=== PATIENT | female | born 1950 | race Caucasian/White ===

== ENCOUNTER 2018-09-28 10:26 | Emergency (ER) | payer MEDICARE ==
[2018-09-28 10:54] VITALS: O2SAT 98
--- NOTE | 2018-09-28 11:16 | ERPHSYRPT ---
- History of Present Illness Time Seen by Provider: 09/28/18 11:06 Source: patient Exam Limitations: no limitations Patient Subjective Stated Complaint: states walked outside and slipped on ice. fell backwards and hit back of head and right hip on the ice. takes baby asa at night. now having headache and right hip pain. Triage Nursing Assessment: ambulated to room per self. skin w/d, color normal, resp easy. holding head at times. gerson. a/o times three. Physician History: The patient is a 68-year-old female with her fianc complaining that she slipped on ice, causing her to fall back and strike her head on the ice. This happened this morning. She did not lose consciousness. She has a headache on the back side of her head as well as neck pain. She denies nausea or vomiting. She denies numbness or tingling. She wants it checked out because her mother from a head injury in 2005. Her past medical history is significant for anxiety, thyroid cancer, thyroidectomy, HTN, DM, high cholesterol, and hypothyroidism. Occurred: this morning Reason for Fall: slipped, fell from standing pos Injuries/Pain Location: head, neck Loss of Consciousness: no loss of consciousness Quality: aching Severity of Pain-Max: mild Severity of Pain-Current: mild Modifying Factors: Improves With: nothing Associated Symptoms (Fall): headache, neck pain Allergies/Adverse Reactions: cephalexin [From Keflex] Allergy (Verified 09/28/18 10:55) ciprofloxacin [From Cipro] Allergy (Verified 09/28/18 10:55) codeine Allergy (Verified 09/28/18 10:55) erythromycin base Allergy (Verified 09/28/18 10:55) insulin degludec [From Tresiba FlexTouch U-100] Allergy (Verified 09/28/18 10:55 ) Sulfa (Sulfonamide Antibiotics) Allergy (Verified 09/28/18 10:55) Home Medications: ALPRAZolam [Alprazolam] 0.25 mg PO TID 09/28/18 [History] Aspirin [[place] Aspirin EC] 81 mg PO HS 09/28/18 [History] Cetirizine HCl [Zyrtec] 10 mg PO DAILY 09/28/18 [History] Ergocalciferol (Vitamin D2) [Vitamin D2] 50,000 unit PO Q7D 09/28/18 [History] Ezetimibe/Simvastatin [Vytorin 10-40 mg Tablet] 1 tablet PO HS 09/28/18 [History ] Fenofibrate,Micronized 145 mg* [Tricor 145 MG] 145 mg PO DAILY 09/28/18 [ History] Glimepiride 4 mg [Amaryl 4 mg] 6 mg PO DAILY 09/28/18 [History] Levothyroxine Sodium 150 Mcg [Synthroid 150 Mcg] 150 mcg PO DAILY 09/28/18 [History] Losartan/Hydrochlorothiazide [Losartan-Hctz 50-12.5 mg Tab] 1 each PO BID [History] Omeprazole 20 mg PO DAILY 09/28/18 [History] Hx Tetanus, Diphtheria Vaccination/Date Given: No Hx Influenza Vaccination/Date Given: Yes Hx Pneumococcal Vaccination/Date Given: Yes - Review of Systems Constitutional: No Fever, No Chills Eyes: No Symptoms Ears, Nose, & Throat: No Symptoms Respiratory: No Cough, No Dyspnea Cardiac: No Chest Pain, No Edema, No Syncope Abdominal/Gastrointestinal: No Abdominal Pain, No Nausea, No Vomiting, No Diarrhea Genitourinary Symptoms: No Dysuria Musculoskeletal: Neck Pain, Fall Skin: No Rash Neurological: Headache Psychological: No Symptoms Endocrine: No Symptoms Hematologic/Lymphatic: No Symptoms Immunological/Allergic: No Symptoms All Other Systems: Reviewed and Negative - Past Medical History Pertinent Past Medical History: Yes Cardiac History: High Cholesterol, Hypertension, Other Respiratory History: Bronchitis, COPD Endocrine Medical History: Diabetes Type II, Hypothyroidism, Thyroid Cancer Musculoskeletal History: Arthritis GI Medical History: Diverticulitis, Hernia Psycho-Social History: Anxiety, Panic Disorder Other Medical History: MVP - Past Surgical History Past Surgical History: Yes Gastrointestinal: Appendectomy, Cholecystectomy Female Surgical History: Hysterectomy, Tubal Ligation Other Surgical History: thyroidectomy - Social History Smoking Status: Current every day smoker How long have you smoked: many yrs Exposure to second hand smoke: Yes Drug Use: none Patient Lives Alone: Yes - Female History Hx Now: No - Nursing Vital Signs Nursing Vital Signs: Initial Vital Signs Temperature 97.9 F 09/28/18 10:35 Pulse Rate 86 09/28/18 10:35 Respiratory Rate 16 09/28/18 10:35 Blood Pressure 166/88 09/28/18 10:35 O2 Sat by Pulse Oximetry 98 09/28/18 10:35 Pain Scale Pain Intensity 8 - Hussain Coma Score Best Eye Response (Hussain): (4) open spontaneously Best Verbal Response ([place]): (5) oriented Best Motor Response (Hussain): (6) obeys commands Hussain Total: 15 - Physical Exam General Appearance: no apparent distress, alert Head Injury: tenderness (occiput) Eye Exam: PERRL/EOMI ENT Exam: airway nml Neck Exam: mid-line tenderness Respiratory/Chest Exam: normal breath sounds, No chest tenderness, No respiratory distress Cardiovascular Exam: normal heart sounds, regular rate/rhythm Gastrointestinal Exam: soft, No tenderness, No distention, No guarding, No ecchymosis Rectal Exam: not done Back Exam: normal inspection, No vertebral tenderness Extremity Exam: normal inspection, normal range of motion, pelvis stable, No deformities Neurologic Exam: alert, oriented x 3, cooperative, sensation nml, No motor deficits Skin Exam: normal color, warm, dry SpO2 Interpretation: normal SpO2: 98 O2 Delivery: Room Air - CT Exams Head CT Interpretation: Negative, Tele-radiologist Report (per Dr Ortiz), No/ Intracranial Hemorrhag Cervical Spine CT Interpretation: Negative, Tele-radiologist Report (per Dr Ortiz), No Fracture , Other (DJD) Ordered Tests: Active Orders 24 hr Category Date Time Status CERVICAL SPINE WO CONTRAST [CT] Stat Exams 09/28/18 11:20 Taken HEAD WITHOUT CONTRAST [CT] Stat Exams 09/28/18 11:20 Taken - Progress Progress: unchanged Counseled pt/family regarding: rad results - Departure Time of Disposition: 12:36 Departure Disposition: Home Clinical Impression: Fall, Head contusion, Neck pain Condition: Stable Critical Care Time: No Referrals: JAISON QUINTEROS MD [Primary Care Provider] - Additional Instructions: You had a fall today the cause that contusion to the back of your head and some mild neck pain. The head CT and the CT of your neck were both negative. There was no bleeding in your brain. Take Tylenol 500-1000 mg every 6-8 hours as needed. Follow-up with your primary medical doctor as needed.
[2018-09-28 12:14] VITALS: BP 115/94; PULSE 75
--- NOTE | 2018-09-28 20:32 | XRAY ---
Indication: Pain following fall. Multiple contiguous axial images obtained through the head without contrast. Comparison: None Age-appropriate global atrophy and mild periventricular degenerative microvascular ischemia. No acute intracranial hemorrhage, abnormal extra-axial fluid collection, or mass effect. Fourth ventricle is midline without hydrocephalus. Bony calvarium intact. Visualized paranasal sinuses and mastoid air cells are clear. Impression: Nonacute senile brain. Comment: Preliminary interpretation was made by [facility]. No critical discrepancy. CTDI 49.11
--- NOTE | 2018-09-28 20:37 | XRAY ---
Indication: Pain following fall. Multiple contiguous axial images obtained through the cervical spine. Sagittal and coronal reformatted images obtained. Comparison: None Axial images negative for acute fracture, suspicious bony lesions, or spinal canal stenosis. Mild/moderate multilevel degenerative endplate spurring, greatest C6-C7 level. Also multilevel bilateral degenerative facet hypertrophy. Sagittal and coronal reformatted images demonstrates cervical lordotic straightening, positional versus paraspinal spasm. C6-C7 disc space narrowing. No acute compression fracture, subluxation, or jumped facet. Normal appearing craniocervical junction. Visualized noncontrasted soft tissues unremarkable. Impression: 1. Negative acute fracture/subluxation. Cervical lordotic straightening, positional versus paraspinal spasm. 2. Multilevel degenerative changes. Comment: Preliminary interpretation was made by [facility]. No critical discrepancy. CTDI 56.79
== END 2018-09-28 13:01 | disposition home or self-care (01) ==
LOC: ED 10:26
DX: S00.93XA Contusion of unspecified part of head, initial encounter (principal); M54.2 Cervicalgia; W00.2XXA Other fall from one level to another due to ice and snow, initial encounter; Y93.29 Activity, other involving ice and snow; R51 Headache; F41.9 Anxiety disorder, unspecified; Z85.850 Personal history of malignant neoplasm of thyroid; I10 Essential (primary) hypertension; E78.00 Pure hypercholesterolemia, unspecified; E03.9 Hypothyroidism, unspecified; Z79.899 Other long term (current) drug therapy; J44.9 Chronic obstructive pulmonary disease, unspecified; E11.9 Type 2 diabetes mellitus without complications; Z72.0 Tobacco use
CPT/HCPCS: 70450; 72125; 99283

== ENCOUNTER 2018-12-05 09:08 | Observation (INO) | payer MEDICARE ==
[2018-12-05] MEDS ORDERED: Sodium Chloride 0.9% 1000 ML 1,000 ML IV SCH (09:45)
[2018-12-05 09:57] LABS: BASOPHIL % 0.6 % (0.0-0.4); Basophil (Absolute #) 0.07 (0-0.4); Eosinophil % 0.9 % (0.00-5.0); Eosinophil (Absolute #) 0.11 (0-0.5); Granulocyte Absolute (ANC) 9.65 (1.4-6.9); Granulocytes % 75.9 % (36.0-66.0); Hematocrit 45.4 % (35-47); Hemoglobin 15.6 gm/dl (12.0-16.0); Lymphocyte (Absolute #) 1.99 (1.0-4.6); Lymphocytes % 15.7 % (24.0-44.0); Mean Cell Volume 85.5 fl (78-100); Mean Corpuscular Hemoglobin 29.4 pg (26-32); Mean Corpuscular Hgb Concent. 34.4 g/dl (32-36); Mean Platelet Volume 10.3 fl (6-9.5); Monocyte (Absolute #) 0.87 (0.0-1.3); Monocytes % 6.9 % (0.0-12.0); Platelet Count 385 K/mm3 (150-450); Red Blood Count 5.31 M/mm3 (4.1-5.4); White Blood Count 12.7 K/mm3 (4.0-10.5)
[2018-12-05 09:58] LABS: INR 1.07 (0.8-3.0); PROTIME 12.4 SECONDS (9.95-12.35)
--- NOTE | 2018-12-05 09:58 | XRAY ---
Indication: Short of breath and cough. Comparison: None Portable chest demonstrates normal heart and lungs with incidental right base calcified granuloma. Bony thorax intact with mild degenerative changes.
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
[2018-12-05 10:02] LABS: ALBUMIN 4.4 g/dL (3.5-5.0); ALKALINE PHOSPHATASE 89 U/L (38-126); ANION GAP 13.9 MEQ/L (5-15); BLOOD UREA NITROGEN 12 mg/dL (7-17); CHLORIDE 90 mmol/L (98-107); Calcium 9.5 mg/dL (8.4-10.2); Carbon Dioxide 29 mmol/L (22-30); Creatinine 1 0.85 mg/dL (0.52-1.04); Glucose 200 mg/dL (74-106); MAGNESIUM 1.6 mg/dL (1.6-2.3); Potassium 3.1 mmol/L (3.5-5.1); SGOT/AST 26 U/L (14-36); SGPT/ALT 27 U/L (0-35); SODIUM 130 mmol/L (137-145); Total Protein 7.5 g/dL (6.3-8.2)
[2018-12-05] MEDS ORDERED: PROTONIX 40 MG IV IV ONE ×2 (10:04→10:10)
[2018-12-05 10:28] LABS: Appearance SLIGHTLY CLOUDY (CLEAR); Bilirubin NEGATIVE (NEGATIVE); Blood SMALL Ery/ul (0-5); Epithelial Cells FEW /HPF (FEW); Glucose 150 mg/dL (NEGATIVE); Ketones NEGATIVE (NEGATIVE); Leukocyte Esterase NEGATIVE (NEGATIVE); Mucus SLIGHT /HPF (NEGATIVE); Nitrite NEGATIVE (NEGATIVE); Protein,Urine Dip 100 (Negative); Urobilinogen NEGATIVE mg/dL (0-1)
[2018-12-05] MEDS ORDERED: POTASSIUM CHLORIDE 20 mEq IN WATER 100ML 20 MEQ/100 ML BAG IV ONE (10:33)
[2018-12-05] MEDS ORDERED: Klor Con 10 MEQ PO ONE ×3 (10:34→10:39)
[2018-12-05] MEDS ORDERED: POTASSIUM CHLORIDE 20 mEq IN WATER 100ML 100 ML IV ONE (10:38)
[2018-12-05] MEDS ORDERED: Macrobid 100MG Capsule PO ONE (11:24)
[2018-12-05] MEDS ORDERED: Macrobid 100MG Capsule ONE (11:25)
[2018-12-05] MEDS ORDERED: Zofran 4 MG/2 ML VIAL IV PRN (11:27)
[2018-12-05] MEDS ORDERED: TYLENOL 325 MG PO PRN (11:27)
[2018-12-05] MEDS ORDERED: Sodium Chloride 0.9% W/ 20 mEq KCl/LITER 1,000 ML IV SCH (11:30)
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
--- NOTE | 2018-12-05 14:00 | XRAY ---
Indication: Dysphagia. Comparison: None Esophagram performed in the AP, oblique, and lateral planes. Patient ingested barium without miss swallow or aspiration. Distal third of the esophagus demonstrated minimal spasms. Otherwise no focal stricture, obstruction, or filling defect. Patient ingested a barium tablet with wastewater treatment engineer which freely emptied into the stomach. No hiatal hernia or gastroesophageal reflux demonstrated. Impression: Minimal distal esophageal spasm in a otherwise negative esophagram. Approximately 0.6 minute fluoroscopy used.
[2018-12-05] MEDS: xanAX 0.25 MG PO SCH ×2 (15:46→21:25)
[2018-12-05] MEDS: POTASSIUM CHLORIDE 20 mEq IN WATER 100ML 20 MEQ/100 ML BAG IV SCH ×2 (16:47→18:48)
[2018-12-05] MEDS: Macrobid 100MG Capsule PO SCH (17:18)
[2018-12-05] MEDS ORDERED: ECOTRIN 81 MG PO SCH (22:00)
[2018-12-05] MEDS: Cozaar 50 MG PO SCH (22:12)
[2018-12-05] MEDS: hydroDIURIL 25 MG PO SCH (22:12)
[2018-12-06] MEDS ORDERED: SYNTHROID 150 MCG ONE (05:29)
[2018-12-06] MEDS: xanAX 0.25 MG PO SCH (08:46)
[2018-12-06] MEDS: Macrobid 100MG Capsule PO SCH (08:46)
[2018-12-06] MEDS: Cozaar 50 MG PO SCH (08:49)
[2018-12-06] MEDS: hydroDIURIL 25 MG PO SCH (08:50)
[2018-12-06 09:29] VITALS: BP 125/70; PULSE 99; O2SAT 98
[2018-12-06] MEDS ORDERED: Protonix 40MG Tablet PO SCH (10:00)
[2018-12-06] MEDS ORDERED: PROTONIX 40 MG IV IV SCH (10:00)
[2018-12-06] MEDS ORDERED: AMARYL 4 MG PO SCH (10:00)
[2018-12-06] MEDS ORDERED: NON-FORMULARY ITEM (Cetirizine Hcl [Zyrtec] 10 MG) PO SCH (10:00)
[2018-12-06] MEDS ORDERED: NON-FORMULARY ITEM (Omeprazole [Omeprazole] 20 MG) PO SCH (10:00)
[2018-12-06] MEDS ORDERED: CLARITIN 10 MG PO SCH (10:00)
[2018-12-06] MEDS ORDERED: SYNTHROID 150 MCG PO SCH (10:00)
--- NOTE | 2018-12-06 19:06 | PCM.DS ---
Discharge Summary Date of Admission: 12/05/18 11:50 Admitting Physician: JAISON QUINTEROS Primary Care Provider: JAISON QUINTEROS Allergies Allergies benzonatate [From Tessalon Perles] Allergy (Verified 12/05/18 10:11) cephalexin [From Keflex] Allergy (Verified 12/05/18 10:11) ciprofloxacin [From Cipro] Allergy (Verified 12/05/18 10:11) codeine Allergy (Verified 12/05/18 10:11) doxycycline Allergy (Verified 12/05/18 10:11) erythromycin base Allergy (Verified 12/05/18 10:11) insulin degludec [From Tresiba FlexTouch U-100] Allergy (Verified 12/05/18 10:11 ) Sulfa (Sulfonamide Antibiotics) Allergy (Verified 12/05/18 10:11) Hospital Summary - Hospital Course Hospital Course: Chief Complaint Diagnosis HYPOKALEMIA, GENERALIZED WEAKNESS, UTI Allergies Allergy/AdvReac Type Severity Reaction Status Date / Time benzonatate Allergy Verified 12/05/18 10:11 [From Tessalon Perles] cephalexin [From Keflex] Allergy Verified 12/05/18 10:11 ciprofloxacin [From Cipro] Allergy Verified 12/05/18 10:11 codeine Allergy Verified 12/05/18 10:11 doxycycline Allergy Verified 12/05/18 10:11 erythromycin base Allergy Verified 12/05/18 10:11 insulin degludec Allergy Verified 12/05/18 10:11 [From Tresiba FlexTouch U-100] Sulfa (Sulfonamide Allergy Verified 12/05/18 10:11 Antibiotics) Vital Signs (Last 24 hours) Temp Pulse Resp BP Pulse Ox 12/06/18 09:00 18 12/06/18 08:00 98.3 F 99 H 18 125/70 98 12/06/18 05:00 16 12/06/18 04:00 98.3 F 91 H 16 126/68 94 L 12/06/18 01:00 20 12/05/18 23:45 97.5 F 104 H 20 118/71 99 12/05/18 21:00 20 12/05/18 19:49 97.6 F 95 H 17 104/65 97 Home Medications Medication Instructions Recorded Confirmed Last Taken Type Potassium Chloride 8 meq PO DAILY #30 capsule.er 12/06/18 Unknown Rx Current Medications Discontinued Medications Generic Name Dose Route Start Last Admin Trade Name Freq PRN Reason Stop Dose Admin Acetaminophen 650 mg 12/05/18 11:27 Tylenol 325 Mg PO 01/04/19 11:26 Q4H PRN PRN PAIN AND/OR FEVER Alprazolam 0.25 mg 12/05/18 15:00 12/06/18 08:46 Xanax 0.25 Mg PO 01/04/19 14:59 0.25 mg TID JP Administration Aspirin 81 mg 12/05/18 22:00 12/05/18 21:23 Ecotrin 81 Mg PO 01/04/19 21:59 81 mg HS JP Administration Ergocalciferol 50,000 unit 12/12/18 10:00 Vitamin D2 PO 01/11/19 09:59 Q7D JP Glimepiride 6 mg 12/06/18 10:00 12/06/18 08:52 Amaryl 4 Mg PO 01/05/19 09:59 Not Given DAILY JP Hydrochlorothiazide 25 mg 12/05/18 22:00 12/06/18 08:50 Hydrodiuril 25 Mg PO 01/04/19 21:59 12.5 mg BID JP Administration Sodium Chloride 1,000 mls @ 100 mls/hr 12/05/18 09:45 12/05/18 10:00 Sodium Chloride 0.9% 1000 Ml IV 01/04/19 09:44 100 mls/hr .Q10H JP Administration Potassium Chloride 20 meq in 100 mls @ 50 mls/hr 12/05/18 10:33 12/05/18 10: 43 Potassium Chloride 20 Meq In Water 100ml IV 12/05/18 12:32 50 mls/hr STAT ONE Administration Potassium Chloride Confirm 12/05/18 10:38 Potassium Chloride 20 Meq In Water 100ml Administered 12/05/18 10:39 Dose 100 mls @ ud IV .STK-MED ONE Potassium Chloride/Sodium Chloride 1,000 mls @ 50 mls/hr 12/05/18 11:30 Sodium Chloride 0.9% W/ 20 Meq Kcl/Liter IV 01/04/19 11:29 .Q20H JP Potassium Chloride 20 meq in 100 mls @ 50 mls/hr 12/05/18 16:00 12/05/18 18: 48 Potassium Chloride 20 Meq In Water 100ml IV 12/05/18 19:59 50 mls/hr Q2H JP Administration Levothyroxine Sodium 150 mcg 12/06/18 10:00 12/06/18 05:29 Synthroid 150 Mcg PO 01/05/19 09:59 150 mcg QAM JP Administration Levothyroxine Sodium Confirm 12/06/18 05:29 Synthroid 150 Mcg Administered 12/06/18 05:30 Dose 150 mcg .ROUTE .STK-MED ONE Loratadine 10 mg 12/06/18 10:00 12/06/18 08:48 Claritin 10 Mg PO 01/05/19 09:59 10 mg DAILY JP Administration Losartan Potassium 50 mg 12/05/18 22:00 12/06/18 08:49 Cozaar 50 Mg PO 01/04/19 21:59 50 mg BID JP Administration Nitrofurantoin Macrocrystals 100 mg 12/05/18 11:24 12/05/18 11:28 Macrobid 100mg Capsule PO 12/05/18 11:25 100 mg STAT ONE Administration Nitrofurantoin Macrocrystals Confirm 12/05/18 11:25 Macrobid 100mg Capsule Administered 12/05/18 11:26 Dose 100 mg .ROUTE .STK-MED ONE Nitrofurantoin Macrocrystals 100 mg 12/05/18 17:00 12/06/18 08:46 Macrobid 100mg Capsule PO 01/04/19 16:59 100 mg BIDWM JP Administration Ondansetron HCl 4 mg 12/05/18 11:27 Zofran 4 Mg/2 Ml Vial IV 01/04/19 11:26 Q6H PRN PRN NAUSEA/VOMITING Pantoprazole Sodium 40 mg 12/05/18 10:04 12/05/18 10:14 Protonix 40 Mg Iv IV 12/05/18 10:05 40 mg STAT ONE Administration Pantoprazole Sodium Confirm 12/05/18 10:10 Protonix 40 Mg Iv Administered 12/05/18 10:11 Dose 40 mg IV .STK-MED ONE Pantoprazole Sodium 40 mg 12/06/18 10:00 Protonix 40 Mg Iv IV 01/05/19 09:59 Q24H10 JP Pantoprazole Sodium 40 mg 12/06/18 10:00 12/06/18 08:49 Protonix 40mg Tablet PO 01/05/19 09:59 40 mg DAILY JP Administration Potassium Chloride 40 meq 12/05/18 10:34 12/05/18 10:43 Klor Con 10 Meq PO 12/05/18 10:35 40 meq STAT ONE Administration Potassium Chloride Confirm 12/05/18 10:39 Klor Con 10 Meq Administered 12/05/18 10:40 Dose 40 meq PO .STK-MED ONE Potassium Chloride Confirm 12/05/18 10:39 Klor Con 10 Meq Administered 12/05/18 10:40 Dose 10 meq PO .STK-MED ONE Intake & Output (Last 24 hours) 12/04/18 12/05/18 12/06/18 12/07/18 11:59 11:59 11:59 11:59 Intake Total 2761 Balance 2761 Weight 72.575 kg 76.2 kg Microbiology Results (Last 24 hours) 12/05/18 10:09 Clean Catch Midstream Urine Culture - Preliminary GRAM POSITIVE ID AND SENSITIVITY PENDING Laboratory Results (Last 24 hours) 12/05/18 12/05/18 21:43 00:15 Potassium 3.5 Troponin I < 0.012 Orders (Last 24 hours) Category Date Time Status Discharge Routine Discharge 12/06/18 Ordered Discharge/Telephone Order Routine Discharge 12/06/18 Active TROPONIN Q3H Lab 12/05/18 18:05 Completed TROPONIN Q3H Lab 12/05/18 21:43 Completed Aspirin EC 81 mg [Ecotrin 81 mg] Med 12/05/18 22:00 Discontinued 81 mg PO HS Ergocalciferol (Vitamin D2) [Vitamin D2] Med 12/12/18 10:00 Discontinued 50,000 unit PO Q7D Glimepiride 4 mg [Amaryl 4 mg] Med 12/06/18 10:00 Discontinued 6 mg PO DAILY Hydrochlorothiazide 25 mg [hydroDIURIL 25 MG] Med 12/05/18 22:00 Discontinued 25 mg PO BID Levothyroxine Sodium 150 Mcg [Synthroid 150 Mcg] Med 12/06/18 05:29 Discontinued 150 mcg .ROUTE .STK-MED ONE Levothyroxine Sodium 150 Mcg [Synthroid 150 Mcg] Med 12/06/18 10:00 Discontinued 150 mcg PO QAM Loratadine 10 mg [Claritin 10 mg] Med 12/06/18 10:00 Discontinued 10 mg PO DAILY Losartan Potassium 50 mg [Cozaar 50 MG] Med 12/05/18 22:00 Discontinued 50 mg PO BID PANTOPRAZOLE 40 mg Tablet [Protonix 40MG Tablet] Med 12/06/18 10:00 Discontinued 40 mg PO DAILY Pantoprazole 40 mg [Protonix 40 mg IV] Med 12/06/18 10:00 Discontinued 40 mg IV Q24H10 Patient Care Notes (Last 24 hours) 12/06/18 08:37 Nursing Note by Kelly Antunez ROUNDED WITH DR VARGAS THIS AM WILL DC PT HOME ON POTASSIUM 8 MEQ DAILY AND PT WILL NEED TO FU WITH DR QUINTEROS IN 1 WEEK, START A SUPPLEMENT EITHER BOOST ENSURE OR SIMILAR FOR CALORIE REPLENISHMENT Initialized on 12/06/18 08:37 - END OF NOTE 12/05/18 21:00 (created 12/06/18 00:49) Nursing Note by Addison Turk Informed pt she could go home tonight if her K level was w in [place], she decided she wanted to wait til morning Initialized on 12/06/18 00:49 - END OF NOTE 12/05/18 19:30 (created 12/06/18 00:45) Nursing Note by Addison Turk Dr called stated pt can go home tonight if K level is in normal range after 2 hour post if she wanted to even though it will be late, if K level not in range or if she wants to wait til morning, Send pt home 1st thing in the morning with order for K Initialized on 12/06/18 00:45 - END OF NOTE - Vitals & Intake/Output Vital Signs: Vital Signs Temperature 98.3 F 12/06/18 08:00 Pulse Rate 99 H 12/06/18 08:00 Respiratory Rate 18 12/06/18 09:00 Blood Pressure 125/70 12/06/18 08:00 O2 Sat by Pulse Oximetry 98 04/20/19 08:00 Intake & Output: Intake & Output 12/04/18 12/05/18 12/06/18 12/07/18 11:59 11:59 11:59 11:59 Intake Total 2761 Balance 2761 Weight 72.575 kg 76.2 kg - Lab Result Diagrams: 12/05/18 09:38 12/05/18 15:00 Lab Results-Last 24 Hrs: Accuchecks Date 12/06/18 Time 07:30 Accucheck Value: 203 Accucheck Value: 203 Lab Results-Last 24 Hours 12/05/18 12/05/18 Range/Units 00:15 21:43 Potassium 3.5 (3.5-5.1) mmol/L Troponin I < 0.012 (0.000-0.034) ng/mL Micro Results-Entire Visit: Microbiology 12/05/18 10:09 Urine Culture - Preliminary Clean Catch Midstream GRAM POSITIVE ID AND SENSITIVITY PENDING Accuchecks Date 12/06/18 Time 07:30 Accucheck Value: 203 Accucheck Value: 203 - Radiology Exams Ordered Rad Exams-Entire Visit: Radiology Procedures Category Date Time Status BARIUM SWALLOW ESOPHOGRAM Stat Exams 12/05/18 13:27 Completed CHEST 1 VIEW (PORTABLE) Stat Exams 12/05/18 09:39 Completed - Procedures and Test Procedures and Tests throughout Hospitalization: Therapy Orders & Screens 12/05/18 13:15 ST Screen per Nursing Assess once Comment: Protocol Order Physician Instructions: Greater than [address] Admission Screening Reason For Exam: Triggered on Admission Diagnosis: HYPOKALEMIA, GENERALIZED WEAKNESS, UTI CVA/Dyshpagia/Aphasia: No Cognitive Deficits: No Dehydration/Nutrition Deficit: Yes Reflux: Yes Oral-Motor Difficulties: No Pneumonia: No Retirement Resident: No Total Points: 8 Discharge Exam General Appearance: no apparent distress, alert Neurologic Exam: alert, oriented x 3, cooperative, normal mood/affect, nml cerebellar function, sensation nml, No motor deficits Skin Exam: normal color, warm, dry Eye Exam: PERRL, EOMI, eyes nml inspection Ears, Nose, Throat Exam: normal ENT inspection, pharynx normal, moist mucous membranes Neck Exam: normal inspection, non-tender, supple, full range of motion Respiratory Exam: normal breath sounds, lungs clear, No respiratory distress Cardiovascular Exam: regular rate/rhythm, normal heart sounds Gastrointestinal/Abdomen Exam: soft, No tenderness, No mass Extremity Exam: normal inspection, normal range of motion Back Exam: normal inspection, normal range of motion, No CVA tenderness, No vertebral tenderness Pelvic Exam: deferred Rectal Exam: deferred Final Diagnosis/Problem List - Final Discharge Diagnosis/Problem (1) Hypokalemia Status: Resolved Code(s): E87.6 - HYPOKALEMIA (2) Dysphagia, pharyngoesophageal phase Status: Resolved Code(s): R13.14 - DYSPHAGIA, PHARYNGOESOPHAGEAL PHASE (3) Type 2 diabetes mellitus Status: Chronic (4) HTN (hypertension) Status: Chronic Code(s): I10 - ESSENTIAL (PRIMARY) HYPERTENSION - Discharge Discharge Date: 12/06/18 Disposition: Home, Self-Care Condition: Stable Prescriptions: New Potassium Chloride 8 meq PO DAILY #30 capsule.er Continue Ergocalciferol (Vitamin D2) [Vitamin D2] 50,000 unit PO Q7D Levothyroxine Sodium 150 Mcg [Synthroid 150 Mcg] 150 mcg PO DAILY Omeprazole 20 mg PO DAILY Losartan/Hydrochlorothiazide [Losartan-Hctz 50-12.5 mg Tab] 1 each PO BID Glimepiride 4 mg [Amaryl 4 mg] 6 mg PO DAILY Cetirizine HCl [Zyrtec] 10 mg PO DAILY Aspirin [[place] Aspirin EC] 81 mg PO HS ALPRAZolam [Alprazolam] 0.25 mg PO TID Instructions: Hypokalemia (DC), High Potassium Diet Additional Instructions: FU WITH DR QUINTEROS IN 1 WEEK, START A SUPPLEMENT EITHER BOOST ENSURE OR SIMILAR FOR CALORIE REPLENISHMENT Follow up with: JAISON QUINTEROS MD [Primary Care Provider] - 12/08/18 2:30 pm (at [place])
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
[2018-12-12] MEDS ORDERED: VITAMIN D2 PO SCH (10:00)
== END 2018-12-06 09:45 | disposition home or self-care (01) ==
LOC: ED 09:08 → MED SURG 11:50
PROVIDERS: ADMIT General Practice; ATTEND General Practice
DX: E87.6 Hypokalemia (principal); R13.14 Dysphagia, pharyngoesophageal phase; E11.9 Type 2 diabetes mellitus without complications; K22.4 Dyskinesia of esophagus; R53.1 Weakness; I10 Essential (primary) hypertension; N39.0 Urinary tract infection, site not specified; J44.9 Chronic obstructive pulmonary disease, unspecified; E78.00 Pure hypercholesterolemia, unspecified; Z85.850 Personal history of malignant neoplasm of thyroid; F17.200 Nicotine dependence, unspecified, uncomplicated; F43.10 Post-traumatic stress disorder, unspecified; Z79.899 Other long term (current) drug therapy
CPT/HCPCS: 36000; 36415; 71045; 74220; 80053; 81001; 82962; 83036; 83735; 84132; 84443; 84484; 85025; 85610; 87040; 87077; 87086; 87186; 93005; 93041; 96360; 96365; 96374; 99285; G0378; J3480; A9270-GY

== ENCOUNTER 2018-12-15 21:41 | Emergency (ER) | payer MEDICARE ==
[2018-12-15] MEDS ORDERED: Sodium Chloride 0.9% 1000 ML 1,000 ML IV STA (22:23)
[2018-12-15] MEDS ORDERED: Sodium Chloride 0.9% 1000 ML 1,000 ML ONE ×2 (22:28→23:41)
--- NOTE | 2018-12-15 22:29 | ERPHSYRPT ---
- History of Present Illness Time Seen by Provider: 12/15/18 22:24 Historian: patient Exam Limitations: no limitations Patient Subjective Stated Complaint: Right sided abdominal pain Triage Nursing Assessment: Patient ambulated into ED and transferred self to bed. Patient A + O X 3. Patient's skin pink, warm and dry. Patient complains of right sided abdominal pain that is constant pressure and cramping 10/10 starting this afternoon. Patient did see Dr. Vora today for a EGD consult and told him about her right sided abdominal pain. Dr. Vora has schedules EGD and colonoscopy for 01/05/19. Patient's abdomen soft, round and tender to palpation. Patient BS active X 4. Last BM 12/15/18. Physician History: 68-year-old white female who is been having a problem with abdominal pain for 2- [address] Quinteros several days ago and seen by Dr. kent today she apparently has a colonoscopy and EGD scheduled. She states that this evening she began having pain in her right lateral abdomen and flank described as sharp cramping. No vomiting no diarrhea. Past medical history includes hyperlipidemia, high blood pressure, bronchitis, COPD, diabetes type 2, hypothyroidism, thyroid cancer, arthritis, diverticulitis , hernia, anxiety, panic disorder Past surgical history includes appendectomy, cholecystectomy, hysterectomy, tubal ligation, thyroidectomy Social history positive for tobacco use Timing/Duration: other (pain for 2 weeks recurred today) Activities at Onset: none Quality: aching, cramping Abdominal Pain Onset Location: RLQ, flank (right flank) Pain Radiation: no radiation Severity of Pain-Max: moderate Severity of Pain-Current: moderate Modifying Factors: Improves With: nothing Associated Symptoms: back (right flank pain), No chest pain, No diaphoresis, No diarrhea, No fever/chills, No fatigue, No headache, No heartburn, No loss of appetite, No nausea, No neck pain, No rash, No shortness of breath, No syncope, No vomiting, No weakness Previous symptoms: same symptoms as today, recently seen (patient seen on December 10 for the same by Dr. Quinteros, seen today by Dr. devries) Allergies/Adverse Reactions: benzonatate [From Tessalon Perles] Allergy (Verified 12/15/18 21:59) cephalexin [From Keflex] Allergy (Verified 12/15/18 21:59) ciprofloxacin [From Cipro] Allergy (Verified 12/15/18 21:59) codeine Allergy (Verified 12/15/18 21:59) doxycycline Allergy (Verified 12/15/18 21:59) erythromycin base Allergy (Verified 12/15/18 21:59) insulin degludec [From Tresiba FlexTouch U-100] Allergy (Verified 12/15/18 21:59 ) nitrofurantoin Allergy (Verified 12/15/18 21:59) potassium chloride Allergy (Verified 12/15/18 21:59) Sulfa (Sulfonamide Antibiotics) Allergy (Verified 12/15/18 21:59) Home Medications: ALPRAZolam [Alprazolam] 0.25 mg PO TID 09/28/18 [History] Aspirin [Rainier Aspirin EC] 81 mg PO HS 09/28/18 [History] Cetirizine HCl [Zyrtec] 10 mg PO DAILY 09/28/18 [History] Ergocalciferol (Vitamin D2) [Vitamin D2] 50,000 unit PO Q7D 09/28/18 [History] Glimepiride 4 mg [Amaryl 4 mg] 6 mg PO DAILY 09/28/18 [History] Levothyroxine Sodium 150 Mcg [Synthroid 150 Mcg] 150 mcg PO DAILY 09/28/18 [History] Losartan/Hydrochlorothiazide [Losartan-Hctz 50-12.5 mg Tab] 1 each PO BID [History] Omeprazole 20 mg PO DAILY 09/28/18 [History] Hx Tetanus, Diphtheria Vaccination/Date Given: Yes Hx Influenza Vaccination/Date Given: Yes Hx Pneumococcal Vaccination/Date Given: Yes Immunizations Up to Date: Yes - Review of Systems Constitutional: No Fever, No Chills Eyes: No Symptoms Ears, Nose, & Throat: No Symptoms Respiratory: No Cough, No Dyspnea Cardiac: No Chest Pain, No Edema, No Syncope Abdominal/Gastrointestinal: Abdominal Pain (right lower quadrant pain), Other ( right flank pain), No Nausea, No Vomiting, No Diarrhea, No Constipation, No Hematemesis, No Hematochezia, No Melena, No Dysphagia, No Appetite Changes Genitourinary Symptoms: No Dysuria Musculoskeletal: No Back Pain, No Neck Pain Skin: No Rash Neurological: No Dizziness, No Focal Weakness, No Sensory Changes Psychological: No Symptoms Endocrine: No Symptoms All Other Systems: Reviewed and Negative - Past Medical History Pertinent Past Medical History: Yes Neurological History: No Pertinent History ENT History: No Pertinent History Cardiac History: High Cholesterol, Hypertension, Other Respiratory History: Bronchitis, COPD Endocrine Medical History: Diabetes Type II, Hypothyroidism, Thyroid Cancer Musculoskeletal History: Arthritis GI Medical History: Diverticulitis, Hernia, Other History: No Pertinent History Psycho-Social History: Anxiety, Panic Disorder Female Reproductive Disorders: No Pertinent History Other Medical History: PATIENT STATES SHE HAD YELLOW JAUNDICE YEARS AGO. PATIENT CANNOT TAKE STATINS ALTHOUGH SHE HAS HIGH CHOLESTEROL - Past Surgical History Past Surgical History: Yes Neuro Surgical History: No Pertinent History Cardiac: No Pertinent History Respiratory: No Pertinent History Gastrointestinal: Appendectomy, Cholecystectomy Genitourinary: No Pertinent History Musculoskeletal: Other Female Surgical History: Hysterectomy, Tubal Ligation Other Surgical History: thyroidectomy, NOSE BROKEN AND SET - Social History Smoking Status: Current every day smoker How long have you smoked: years Exposure to second hand smoke: No Drug Use: none Patient Lives Alone: Yes - Female History Hx Last Menstrual Period: complete hysterectomy 1997 Hx Now: No - Nursing Vital Signs Nursing Vital Signs: Initial Vital Signs Temperature 98.5 F 12/15/18 21:59 Pulse Rate 106 H 12/15/18 21:59 Respiratory Rate 20 12/15/18 21:59 Blood Pressure 114/90 12/15/18 21:59 O2 Sat by Pulse Oximetry 97 12/15/18 21:59 Pain Scale Pain Intensity 0 - Physical Exam General Appearance: mild distress, alert Eye Exam: PERRL/EOMI, eyes nml inspection Ears, Nose, Throat Exam: normal ENT inspection, pharynx normal, moist mucous membranes Neck Exam: normal inspection, non-tender, supple, full range of motion Respiratory Exam: normal breath sounds, lungs clear, No respiratory distress Cardiovascular Exam: regular rate/rhythm, normal heart sounds, capillary refill <2 sec Gastrointestinal/Abdomen Exam: soft, normal bowel sounds, tenderness (right lower quadrant tenderness) Back Exam: normal inspection, normal range of motion, No CVA tenderness, No vertebral tenderness Extremity Exam: normal inspection, normal range of motion, pelvis stable Neurologic Exam: alert, oriented x 3, cooperative, staff development educator II-XII nml as tested, normal mood/affect, nml cerebellar function, sensation nml, No motor deficits Skin Exam: normal color, warm, dry SpO2 Interpretation: normal (97%) SpO2: 97 - Course Nursing assessment & vital signs reviewed: Yes EKG Interpreted by Me: RATE (94 bpm), Sinus Rhythm, NORMAL AXIS, Other (EKG: Sinus rhythm with PVC, 94 beats per minute, normal axis, no acute ST or T wave changes, compared with November 04, 2018) - CT Exams Abdomen/Pelvis CT Interpretation: Tele-radiologist Report (CT abdomen and pelvis: Impression 1. Grade 1 anterior non-spondylitic spondylolisthesis of L4 on L5 with severe central spinal stenosis and prominent facet degenerative changes. 2. Severe colonic diverticulosis with high density barium within the diverticula.) Ordered Tests: Active Orders 24 hr Category Date Time Status EKG-ER Only STAT Care 12/15/18 23:47 Active IV Insertion STAT Care 12/15/18 22:23 Active ABDOMEN AND PELVIS W/0 CONTRAS [CT] Stat Exams 12/15/18 22:29 Taken AMYLASE Stat Lab 12/15/18 22:45 Completed CBC W DIFF Stat Lab 12/15/18 22:45 Completed CMP Stat Lab 12/15/18 22:45 Completed LIPASE Stat Lab 12/15/18 22:45 Completed UA W/RFX UR CULTURE Stat Lab 12/15/18 22:45 Completed Medication Summary Generic Name Dose Route Start Last Admin Trade Name Freq PRN Reason Stop Dose Admin Sodium Chloride 1,000 mls @ 50 mls/hr 12/15/18 23:45 12/15/18 23:48 Sodium Chloride 0.9% 1000 Ml IV 01/14/19 23:44 50 mls/hr .Q20H JP Administration Discontinued Medications Generic Name Dose Route Start Last Admin Trade Name Freq PRN Reason Stop Dose Admin Sodium Chloride 1,000 mls @ 999 mls/hr 12/15/18 22:23 12/15/18 23:32 Sodium Chloride 0.9% 1000 Ml IV 12/15/18 23:23 Infused .Q1H1M STA Infusion Sodium Chloride Confirm 12/15/18 22:28 Sodium Chloride 0.9% 1000 Ml Administered 12/15/18 22:29 Dose 1,000 mls @ ud .ROUTE .STK-MED ONE Potassium Chloride 100 mls @ 50 mls/hr 12/15/18 23:40 12/15/18 23:49 Potassium Chloride 20 Meq In Water 100ml IV 12/16/18 01:39 50 mls/hr STAT ONE Administration Sodium Chloride Confirm 12/15/18 23:41 Sodium Chloride 0.9% 1000 Ml Administered 12/15/18 23:42 Dose 1,000 mls @ ud .ROUTE .STK-MED ONE Potassium Chloride Confirm 12/15/18 23:41 Potassium Chloride 20 Meq In Water 100ml Administered 12/15/18 23:42 Dose 100 mls @ ud IV .STK-MED ONE Lab/Rad Data: Laboratory Result Diagrams 12/15/18 22:45 12/15/18 22:45 Laboratory Results 12/15/18 12/15/18 12/15/18 Range/Units 22:45 22:45 22:45 WBC 11.2 H (4.0-10.5) K/mm3 RBC 4.73 (4.1-5.4) M/mm3 Hgb 14.0 (12.0-16.0) gm/dl Hct 40.5 (35-47) % MCV 85.6 (78-100) fl MCH 29.6 (26-32) pg MCHC 34.6 (32-36) g/dl RDW 13.0 (11.5-14.0) % Plt Count 398 (150-450) K/mm3 MPV 10.0 H (6-9.5) fl Gran % 64.0 (36.0-66.0) % Eos # (Auto) 0.22 (0-0.5) Absolute Lymphs (auto) 2.86 (1.0-4.6) Absolute Monos (auto) 0.92 (0.0-1.3) Lymphocytes % 25.4 (24.0-44.0) % Monocytes % 8.2 (0.0-12.0) % Eosinophils % 2.0 (0.00-5.0) % Basophils % 0.4 (0.0-0.4) % Absolute Granulocytes 7.19 H (1.4-6.9) Basophils # 0.05 (0-0.4) Sodium 127 L (137-145) mmol/L Potassium 3.1 L (3.5-5.1) mmol/L Chloride 87 L (98-107) mmol/L Carbon Dioxide 27 (22-30) mmol/L Anion Gap 15.3 H (5-15) MEQ/L BUN 13 (7-17) mg/dL Creatinine 0.70 (0.52-1.04) mg/dL Estimated GFR > 60.0 ML/MIN Glucose 182 H (74-106) mg/dL Calcium 9.0 (8.4-10.2) mg/dL Total Bilirubin 0.30 (0.2-1.3) mg/dL AST 20 (14-36) U/L ALT 22 (0-35) U/L Alkaline Phosphatase 79 (38-126) U/L Serum Total Protein 6.6 (6.3-8.2) g/dL Albumin 3.8 (3.5-5.0) g/dL Amylase 97 (30-110) U/L Lipase 291 (23-300) U/L Urine Color STRAW (YELLOW) Urine Appearance CLEAR (CLEAR) Urine pH 6.0 (5-6) Ur Specific [place] 1.006 (1.005-1.025) Urine Protein NEGATIVE (Negative) Urine Ketones NEGATIVE (NEGATIVE) Urine Blood NEGATIVE (0-5) Sandor/ul Urine Nitrite NEGATIVE (NEGATIVE) Urine Bilirubin NEGATIVE (NEGATIVE) Urine Urobilinogen NEGATIVE (0-1) mg/dL Ur Leukocyte Esterase NEGATIVE (NEGATIVE) Urine WBC (Auto) NONE (0-5) /HPF Urine RBC (Auto) NONE (0-2) /HPF U Epithel Cells (Auto) NONE (FEW) /HPF Urine Bacteria (Auto) NONE (NEGATIVE) /HPF Urine Mucus (Auto) SLIGHT (NEGATIVE) /HPF Urine Culture Reflexed NO (NO) Urine Glucose 150 (NEGATIVE) mg/dL - Progress Progress: improved Progress Note: 12/15/18 23:44 68-year-old white female arrives with complaint of right flank pain and right lower quadrant abdominal pain symptoms for 2 weeks. She had recently been seen in this emergency room was given IV fluids and potassium secondary to a low potassium she was also placed on Macrobid she states she never took it. She does state that she apparently broke out in a rash which she felt was allergic and was given Benadryl by her family doctor and told to stop the potassium and eat 2 bananas a day. She was seen by Dr. kent today EGD and colonoscopy have been scheduled. Patient states she is having some right lower quadrant and right flank pain. I've gone ahead and obtain a CT of the patient's abdomen. CT of the abdomen impression 1 grade 1 anterior non-spondylolytic spondylolisthesis of L4 on L5 with severe central spinal stenosis and prominent facet degenerative changes. 2. Severe colonic diverticulosis with high density barium within the diverticuli. Patient is actually feeling better after just receiving IV fluids she is very anxious about any medication she might receive. She does state that she has some chronic back pain but is not having excessive pain other than her right flank in her right lower quadrant. I've discussed the patient's case with Dr. Quinteros he feels that the patient can receive a K rider here in the emergency room. And she is to follow-up with Dr. Quinteros in the office as an outpatient. Patient does not appear to be in acute distress at this time she is already on Jelena received 1 L of normal saline will give the K rider as requested by her family physician. And plan on discharging the patient. - Departure Departure Disposition: Home Clinical Impression: Right flank pain, Hypokalemia, Spinal stenosis at L4-L5 level Abdominal pain Qualifiers: Abdominal location: right lower quadrant Qualified Code(s): R10.31 - Right lower quadrant pain Condition: Fair Critical Care Time: No Referrals: JAISON QUINTEROS MD [Primary Care Provider] - Additional Instructions: Return home. Plenty of fluids. Tylenol every 4 hours as needed for pain. Continue eating 2 bananas a day. Follow-up with Dr. Quinteros call tomorrow and schedule follow-up appointment. Return for acute distress or for severe symptoms.
[2018-12-15 22:50] LABS: BASOPHIL % 0.4 % (0.0-0.4); Basophil (Absolute #) 0.05 (0-0.4); Eosinophil (Absolute #) 0.22 (0-0.5); Granulocyte Absolute (ANC) 7.19 (1.4-6.9); Hematocrit 40.5 % (35-47); Lymphocyte (Absolute #) 2.86 (1.0-4.6); Lymphocytes % 25.4 % (24.0-44.0); Mean Cell Volume 85.6 fl (78-100); Mean Corpuscular Hemoglobin 29.6 pg (26-32); Mean Corpuscular Hgb Concent. 34.6 g/dl (32-36); Monocyte (Absolute #) 0.92 (0.0-1.3); Monocytes % 8.2 % (0.0-12.0); Platelet Count 398 K/mm3 (150-450); Red Blood Count 4.73 M/mm3 (4.1-5.4); White Blood Count 11.2 K/mm3 (4.0-10.5)
[2018-12-15 22:55] LABS: Appearance CLEAR (CLEAR); Bilirubin NEGATIVE (NEGATIVE); Blood NEGATIVE Ery/ul (0-5); Glucose 150 mg/dL (NEGATIVE); Ketones NEGATIVE (NEGATIVE); Leukocyte Esterase NEGATIVE (NEGATIVE); Mucus SLIGHT /HPF (NEGATIVE); Nitrite NEGATIVE (NEGATIVE); Protein,Urine Dip NEGATIVE (Negative); Specific Gravity 1.006 (1.005-1.025); Urobilinogen NEGATIVE mg/dL (0-1)
[2018-12-15 23:02] LABS: ALBUMIN 3.8 g/dL (3.5-5.0); ALKALINE PHOSPHATASE 79 U/L (38-126); AMYLASE 97 U/L (30-110); ANION GAP 15.3 MEQ/L (5-15); BLOOD UREA NITROGEN 13 mg/dL (7-17); CHLORIDE 87 mmol/L (98-107); Carbon Dioxide 27 mmol/L (22-30); Glucose 182 mg/dL (74-106); LIPASE 291 U/L (23-300); Potassium 3.1 mmol/L (3.5-5.1); SGOT/AST 20 U/L (14-36); SGPT/ALT 22 U/L (0-35); SODIUM 127 mmol/L (137-145); Total Protein 6.6 g/dL (6.3-8.2)
[2018-12-15] MEDS ORDERED: POTASSIUM CHLORIDE 20 mEq IN WATER 100ML 100 ML IV ONE ×2 (23:40→23:41)
[2018-12-15] MEDS ORDERED: Sodium Chloride 0.9% 1000 ML 1,000 ML IV SCH (23:45)
[2018-12-16 01:55] VITALS: O2SAT 97
[2018-12-16 01:59] VITALS: BP 112/67; PULSE 88
--- NOTE | 2018-12-16 08:46 | XRAY ---
Indication: Right flank/right lower quadrant pain 2 weeks. History of diverticulosis. Multiple contiguous axial images obtained through the abdomen and pelvis without contrast as ordered. Comparison: July 26, 2008. Lung bases demonstrates stable right lower lobe calcified granuloma. No infiltrate or effusion. Heart is not enlarged. Noncontrasted stomach and bowel loops appear nonobstructed. Scattered colonic diverticulosis in the left hemicolon greatest in the sigmoid with dense retained barium from recent esophagram. Patient reports appendectomy, cholecystectomy, and hysterectomy. No free fluid/air. Spleen remains enlarged measuring 14.3 cm in greatest axial dimension. Incidental scattered calcified hepatic and splenic granulomas. Remaining liver, pancreas, spleen, adrenal glands, kidneys, ureters, and bladder appear unremarkable for noncontrast exam. Mild scattered aortoiliac calcifications with now 2.7 cm distal to see performed AAA. Osseous structures demonstrates progressive worsening mild/moderate multilevel degenerative spondylosis with stable grade 1 L4 spondylolisthesis. New remote-appearing superior endplate fracture of L1 with less than 25% height loss. Stable small fatty midline ventral hernia just superior to the umbilicus. Impression: 1. Again colonic diverticulosis. No CT evidence for diverticulitis. 2. New 2.7 cm distal AAA. 3. Progressive worsening multilevel degenerative spondylosis with stable grade 1 L1 spondylolisthesis. 4. New remote-appearing L1 endplate fracture. 5. Again incidental splenomegaly and fatty ventral hernia. Comment: Preliminary interpretation was made by [facility]. No critical discrepancy. CT DI 19.83
== END 2018-12-16 02:05 | disposition home or self-care (01) ==
LOC: ED 21:41
DX: R10.31 Right lower quadrant pain (principal); E87.6 Hypokalemia; M48.00 Spinal stenosis, site unspecified; I10 Essential (primary) hypertension; J44.9 Chronic obstructive pulmonary disease, unspecified; E11.9 Type 2 diabetes mellitus without complications; Z85.850 Personal history of malignant neoplasm of thyroid; M19.90 Unspecified osteoarthritis, unspecified site; F41.9 Anxiety disorder, unspecified
CPT/HCPCS: 36000; 36415; 74176; 80053; 81001; 82150; 83690; 85025; 93005; 96360; 96361; 96365; 96366; 96374; 99284; J3480

== ENCOUNTER 2019-01-05 08:14 | Day surgery (SDC) | payer MEDICARE ==
[2019-01-05] MEDS ORDERED: DIPRIVAN 200 MG/20 ML IV ONE (08:15)
--- NOTE | 2019-01-05 08:32 | HP ---
DATE OF SURGERY: 01/05/2019 HISTORY OF PRESENT ILLNESS: The patient is a 68 year-old who had over last couple month's problems with dysphagia upper esophagus and also history of some right lower quadrant aches. She has history of sessile polyp in the past. She has lost 10 pounds over the past four weeks. She also had some right lower quadrant aches as well. Family history of polyp. She is in need of follow up screening colonoscopy as well. PAST MEDICAL HISTORY: Hyperlipidemia, hypothyroidism, diabetes mellitus type 2, anxiety, arthritis. History of hiatal hernia. Chronic obstructive pulmonary disease, hypertension, peripheral vascular disease in the past. PAST SURGICAL HISTORY: Hysterectomy. Tonsillectomy. Adenoidectomy. Tooth extractions. Hemorrhoidectomy. Colonoscopy. Appendectomy. MEDICATIONS: Vitamin D2, hydrochlorothiazide, aspirin, omeprazole, Zyrtec, levothyroxine, glimepiride, Alprazolam. ALLERGIES: CODEINE, KEFLEX, CIPRO, SULFA, TRESIBA. FAMILY HISTORY: Heart disease, diabetes, stroke. SOCIAL HISTORY: History of smoking half to three-quarter pack per day. REVIEW OF SYSTEMS: Twelve systems reviewed pertinent for as noted above. No chest pain or palpitations other systems negative or noncontributory as above and per preadmission questionnaire. PHYSICAL EXAMINATION: GENERAL: No acute distress. HEENT: Sclerae nonicteric. NECK: No JVD. CHEST: Equal excursion, nonlabored breathing. CVS: Regular rate and rhythm. ABDOMEN: Soft with some mild tenderness right lower quadrant. EXTREMITIES: No significant edema. NEURO: Alert, oriented, moving extremities symmetrically. No gross motor deficits noted. RECTAL: Deferred timed to endoscopy exam. IMPRESSION: History of dysphagia upper esophagus and also history of some right lower quadrant aches. She has history of sessile polyp in the past. She is in need of follow up screening colonoscopy as well as given her reflux and problems swallowing, I feel she will benefit from upper endoscopy possible biopsy, possible dilatation if indicated. Risks and benefits explained in detail including but not limited to bleeding or infection, risk of bowel injury or perforation possibly requiring open procedure, risk of missed or nondiagnosis or incomplete exam possibly requiring barium enema, other studies or procedures, general risk of anesthesia or sedation, risk of bowel prep, possible inability to diagnose the etiology of her symptoms possibly requiring other work up or studies or procedures or referrals. She understands and agrees to the planned procedure and will proceed with screening colonoscopy as well as follow up upper endoscopy possible biopsy possible dilatation as an outpatient. She understands if dilatation is necessary and accomplished may need to be repeated again down the road or may fail to improve her swallowing possibly requiring other testing or procedures. She understands and agrees to the planned procedure, will proceed with colonoscopy as well as EGD possible biopsy, possible dilatation as an outpatient.
[2019-01-05] MEDS ORDERED: Lactated Ringers 1,000 ML IV SCH (09:00)
[2019-01-05 11:54] VITALS: BP 125/66; PULSE 70; O2SAT 99
--- NOTE | 2019-01-05 13:55 | OP ---
SURGERY DATE/TIME: 01/05/2019 1025 PREOPERATIVE DIAGNOSES: 1) History of polyps, need for follow up screening colonoscopy. 2) History of some right sided abdominal pain. 3) History of dysphagia upper esophagus. POSTOPERATIVE DIAGNOSES: 1) Symptomatic proximal esophageal narrowing and spasm. 2) Mild gastritis. 3) Colon polyps. 4) Pancolonic diverticulosis. 5) Internal and external hemorrhoids. 6) Fair bowel prep. PROCEDURES: 1) EGD with cold biopsy of the small bowel to evaluate for celiac sprue. 2) Cold biopsy of the antrum to evaluate for Helicobacter pylori. 3) Proximal esophageal balloon dilatation (size 20 balloon) for symptomatic proximal esophageal narrowing and spasm proximal esophagus. 4) Colonoscopy to terminal ileum. 5) Retrograde ileoscopy. 6) Random cold biopsies of the ileum to evaluate for microscopic ileitis. 7) Hot biopsy removal small raised lesion cecum versus early polyp. 8) Hot biopsy small raised lesion early polyp ascending colon. 9) Hot snare polypectomy ascending colon polyps x2. SURGEON: Dr. Klever Vora. ANESTHESIA: MAC. ESTIMATED BLOOD LOSS: Minimal. INDICATIONS: As noted above. Risks and benefits explained in detail and not limited to and consent obtained. DESCRIPTION OF PROCEDURE AND FINDINGS: The patient is taken to the operating room. MAC anesthesia induced. After official time out and no disagreement with planned procedure, a bite block positioned. Video gastroscope passed down the oropharynx proximal esophagus. There was no mass to biopsy but she had some narrowing and spasm proximal esophagus this is where she is having symptoms. I felt she would benefit from dilatation. The scope was able to just passed through here but it was felt that this would benefit from dilatation. The scope passed through the patent pylorus to the junction of the second and third portion of the duodenum. Duodenum and duodenal bulb were grossly unremarkable. Given her right-sided abdominal aches cold biopsy taken in small bowel to evaluate for celiac sprue. Good hemostasis noted. Back in the stomach had some minimal to mild gastritis. No evidence of any ulcers, polyps or masses. Cold biopsy taken to evaluate for Helicobacter pylori. Good hemostasis noted. On retroflex the gastroesophageal junction snug against the scope. No signs of any significant hiatal hernia. The scope was pulled back and the gastroesophageal junction was crisp distal esophagus. No signs of Martin's. No signs of esophagitis. Again, proximal esophageal narrowing and spasm. There were no signs of any masses or mucosal lesions to biopsy. Because she was having symptoms, felt she would benefit from dilatation of the area. The scope passed back down the stomach. A 20 balloon catheter inserted and pulled back up gradually inflated in the narrowed area proximal esophagus size 18 for 45 seconds, size 19 for 45 seconds, size 20 balloon dilator for 2 minutes. The balloon was then released and withdrawn. The scope much more easily passed through the area back into the stomach and slowly and carefully withdrawn. There were no signs of any full thickness issues or injury secondary to balloon dilatation. Again, the area was much more widely patent than prior to dilatation. The scope is withdrawn. The patient tolerated this part of the procedure well. Attention is then turned to the colonoscopy. Digital rectal exam did reveal some internal and external hemorrhoids. There were no signs of any palpable masses. Video colonoscope inserted and passed up through the slightly tortuous sigmoid, descending, transverse and ascending colon around to the cecum. There were two raised polyps, one may have been more hyperplasia was removed with hot snare polypectomy and another one appeared to be adenomatous polyp removed with hot snare polypectomy in the ascending colon. Another small raised lesion right on the ascending colon side of the valve was removed with hot biopsy forceps and another small raised lesion versus early polyp in the cecum removed with hot biopsy forceps. The scope was passed up into the terminal ileum. There were no gross findings of any cobblestoning but given her right-sided abdominal complaints cold biopsy taken to evaluate for microscopic ileitis. Good hemostasis noted. Scope slowly and carefully withdrawn. She did have pancolonic diverticulosis. Prep overall was fair. There were no signs of any other large polyps, masses or obstructing lesions. She did have a little bit of liquidy stool that was suctioned as well as possible. She had some internal and external hemorrhoids in the rectum. The scope is withdrawn. The patient tolerated the procedure well. Findings discussed with the family out in the waiting area.
== END 2019-01-05 12:10 | disposition home or self-care (01) ==
LOC: SDC 08:14
PROVIDERS: ATTEND Surgery
DX: Z12.11 Encounter for screening for malignant neoplasm of colon (principal); Z86.010 Personal history of colon polyps; K29.70 Gastritis, unspecified, without bleeding; D12.2 Benign neoplasm of ascending colon; K57.30 Diverticulosis of large intestine without perforation or abscess without bleeding; K64.4 Residual hemorrhoidal skin tags; K64.8 Other hemorrhoids; K63.5 Polyp of colon; K22.2 Esophageal obstruction; E11.9 Type 2 diabetes mellitus without complications; E78.5 Hyperlipidemia, unspecified; J44.9 Chronic obstructive pulmonary disease, unspecified; I10 Essential (primary) hypertension; Z79.899 Other long term (current) drug therapy
CPT/HCPCS: 82962; J2704

== ENCOUNTER 2019-02-14 12:57 | Observation (INO) | payer MEDICARE ==
[2019-02-14] MEDS ORDERED: BABY ASPIRIN 81 MG CHEW PO ONE (13:08)
--- NOTE | 2019-02-14 13:14 | ERPHSYRPT ---
- History of Present Illness Time Seen by Provider: 02/14/19 13:09 Historian: patient Exam Limitations: no limitations Physician History: 68-year-old white female with history of hyperlipidemia, high blood pressure, bronchitis, COPD, diabetes type 2, hypothyroidism, She arrives with complaint of anterior chest pain which feels like a heaviness an adult pain symptoms for one half to one hour symptoms not associated with nausea she does have some shortness of breath she does have some diarrhea. She states she had similar pain lasting around 15 minutes the past 2 nights which occurred around 9:00. She states she had been seen by her family physician secondary to this recently. Past medical history includes hyperlipidemia, high blood pressure, bronchitis, COPD, diabetes type 2, hypothyroidism, thyroid cancer, arthritis, diverticulitis , hernia, panic disorder, anxiety, jaundice, apparent reaction to statins. Past surgical history includes appendectomy, cholecystectomy, hysterectomy, tubal ligation, thyroid removed, broken nose Social history positive for tobacco use Timing/Duration: today, other (patient for one half to one hour today also occurred last night around 9:00 in the night before around 9:00 lasting 15 minutes) Activities at Onset: none Quality: dullness, pressure Location: other (left anterior chest) Chest Pain Radiation: no radiation Severity of Pain-Max: moderate Severity of Pain-Current: mild Modifying Factors: Improves With: nothing Associated Symptoms: shortness of breath, No nausea, No vomiting, No palpitations, No heartburn, No abdominal pain, No cough, No hurts to breathe, No diaphoresis, No chills, No fever, No fatigue, No weakness, No swelling/lump in chest, No syncope, No rash, No headache, No dizziness, No edema, No back pain Nitro Today/Relief: no nitro taken today Aspirin Treatment Today: 81 mg x 4, provided by ED Allergies/Adverse Reactions: benzonatate [From Tessalon Perles] Allergy (Verified 01/05/19 09:17) cephalexin [From Keflex] Allergy (Verified 01/05/19 09:17) ciprofloxacin [From Cipro] Allergy (Verified 01/05/19 09:17) codeine Allergy (Verified 01/05/19 09:17) doxycycline Allergy (Verified 01/05/19 09:17) erythromycin base Allergy (Verified 01/05/19 09:17) insulin degludec [From Tresiba FlexTouch U-100] Allergy (Verified 01/05/19 09:17 ) nitrofurantoin Allergy (Verified 01/05/19 09:17) potassium chloride Allergy (Verified 01/05/19 09:17) Sulfa (Sulfonamide Antibiotics) Allergy (Verified 01/05/19 09:17) Home Medications: ALPRAZolam [Alprazolam] 0.25 mg PO TID 09/28/18 [History] Cetirizine HCl [Zyrtec] 10 mg PO DAILY 09/28/18 [History] Ergocalciferol (Vitamin D2) [Vitamin D2] 50,000 unit PO Q7D 09/28/18 [History] Levothyroxine Sodium 150 Mcg [Synthroid 150 Mcg] 150 mcg PO DAILY 09/28/18 [History] Losartan/Hydrochlorothiazide [Losartan-Hctz 50-12.5 mg Tab] 1 each PO BID [History] Omeprazole 20 mg PO DAILY 09/28/18 [History] Hx Tetanus, Diphtheria Vaccination/Date Given: Yes Hx Influenza Vaccination/Date Given: Yes Hx Pneumococcal Vaccination/Date Given: Yes - Review of Systems Constitutional: No Fever, No Chills Eyes: No Symptoms Ears, Nose, & Throat: No Symptoms Respiratory: Dyspnea, No Cough, No Cyanosis, No Dyspnea on Exertion (FRYE), No Wheezing Cardiac: Chest Pain, No Edema, No Palpitations, No Syncope, No Orthopnea Abdominal/Gastrointestinal: Diarrhea, No Abdominal Pain, No Nausea, No Vomiting , No Constipation, No Hematemesis, No Hematochezia, No Melena, No Dysphagia, No Appetite Changes Genitourinary Symptoms: No Dysuria Musculoskeletal: No Back Pain, No Neck Pain Skin: No Rash Neurological: No Dizziness, No Focal Weakness, No Sensory Changes Psychological: No Symptoms Endocrine: No Symptoms All Other Systems: Reviewed and Negative - Past Medical History Pertinent Past Medical History: Yes Neurological History: No Pertinent History ENT History: No Pertinent History Cardiac History: High Cholesterol, Hypertension, Other Respiratory History: Bronchitis, COPD Endocrine Medical History: Diabetes Type II, Hypothyroidism, Thyroid Cancer Musculoskeletal History: Arthritis GI Medical History: Diverticulitis, Hernia, Other History: No Pertinent History Psycho-Social History: Anxiety, Panic Disorder Female Reproductive Disorders: No Pertinent History Other Medical History: PATIENT STATES SHE HAD YELLOW JAUNDICE YEARS AGO. PATIENT CANNOT TAKE STATINS ALTHOUGH SHE HAS HIGH CHOLESTEROL - Past Surgical History Past Surgical History: Yes Neuro Surgical History: No Pertinent History Cardiac: No Pertinent History Respiratory: No Pertinent History Gastrointestinal: Appendectomy, Cholecystectomy Genitourinary: No Pertinent History Musculoskeletal: Other Female Surgical History: Hysterectomy, Tubal Ligation Other Surgical History: thyroidectomy, NOSE BROKEN AND SET - Social History Smoking Status: Current every day smoker How long have you smoked: years Exposure to second hand smoke: No Drug Use: none Patient Lives Alone: Yes - Nursing Vital Signs Nursing Vital Signs: Initial Vital Signs Temperature 98.0 F 02/14/19 13:04 Pulse Rate 101 H 02/14/19 13:04 Respiratory Rate 20 02/14/19 13:04 Blood Pressure 144/96 02/14/19 13:04 O2 Sat by Pulse Oximetry 95 02/14/19 13:04 Pain Scale Pain Intensity 0 - Physical Exam General Appearance: mild distress, alert Eye Exam: PERRL/EOMI, eyes nml inspection Ears, Nose, Throat Exam: normal ENT inspection, moist mucous membranes Neck Exam: normal inspection, non-tender, supple, full range of motion Respiratory Exam: normal breath sounds, lungs clear, other (patient with the few wheezes which cleared with a cough), No respiratory distress Cardiovascular Exam: regular rate/rhythm, normal heart sounds, capillary refill <2 sec Gastrointestinal/Abdomen Exam: soft, No tenderness, No mass Back Exam: normal inspection, No CVA tenderness, No vertebral tenderness Extremity Exam: normal inspection, normal range of motion Neurologic Exam: alert, oriented x 3, cooperative, 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 No evidence of pulmonary embolism 2. There has been a prior granulomatous disease 3. 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 Care 02/14/19 13:08 Active EKG-ER Only STAT Care 02/14/19 13:08 Active IV Insertion STAT Care 02/14/19 13:08 Active Pulse Oximetry (ED) STAT Care 02/14/19 13:08 Active CHEST 1 VIEW (PORTABLE) Stat Exams 02/14/19 13:08 Taken CHEST WITH CONTRAST [CT] Stat Exams 02/14/19 14:16 Taken AMYLASE Stat Lab 02/14/19 13:09 Completed CBC W DIFF Stat Lab 02/14/19 13:08 Completed CMP Stat Lab 02/14/19 13:08 Completed D-DIMER QUANTITATION Stat Lab 02/14/19 13:08 Completed LIPASE Stat Lab 02/14/19 13:09 Completed MAG [MAGNESIUM] Stat Lab 02/14/19 14:03 Completed PROTIME WITH INR Stat Lab 02/14/19 13:08 Completed PTT Stat Lab 02/14/19 13:08 Completed TROPONIN Q3H Lab 02/14/19 13:15 Completed TROPONIN Q3H Lab 02/14/19 16:15 Ordered TROPONIN Q3H Lab 02/14/19 19:15 Ordered TROPONIN Q3H Lab 02/14/19 22:15 Ordered TROPONIN Q3H Lab 02/15/19 01:15 Ordered Medication Summary Generic Name Dose Route Start Last Admin Trade Name Freq PRN Reason Stop Dose Admin Potassium Chloride 100 mls @ 50 mls/hr 02/14/19 14:15 02/14/19 14:15 Potassium Chloride 20 Meq In Water 100ml IV 02/14/19 18:14 50 mls/hr Q2H JP Administration Discontinued Medications Generic Name Dose Route Start Last Admin Trade Name Freq PRN Reason Stop Dose Admin Aspirin 324 mg 02/14/19 13:08 02/14/19 13:18 Baby Aspirin 81 Mg Chew PO 02/14/19 13:09 324 mg STAT ONE Administration Aspirin Confirm 02/14/19 13:19 Baby Aspirin 81 Mg Chew Administered 02/14/19 13:20 Dose 324 mg .ROUTE .STK-MED ONE Sodium Chloride Confirm 02/14/19 14:12 Sodium Chloride 0.9% 1000 Ml Administered 02/14/19 14:13 Dose 1,000 mls @ ud .ROUTE .STK-MED ONE Lab/Rad Data: Laboratory Result Diagrams 02/14/19 13:08 02/14/19 13:08 Laboratory Results 02/14/19 02/14/19 02/14/19 Range/Units 14:03 13:15 13:09 WBC (4.0-10.5) K/mm3 RBC (4.1-5.4) M/mm3 Hgb (12.0-16.0) gm/dl Hct (35-47) % MCV (78-100) fl MCH (26-32) pg MCHC (32-36) g/dl RDW (11.5-14.0) % Plt Count (150-450) K/mm3 MPV (6-9.5) fl Gran % (36.0-66.0) % Eos # (Auto) (0-0.5) Absolute Lymphs (auto) (1.0-4.6) Absolute Monos (auto) (0.0-1.3) Lymphocytes % (24.0-44.0) % Monocytes % (0.0-12.0) % Eosinophils % (0.00-5.0) % Basophils % (0.0-0.4) % Absolute Granulocytes (1.4-6.9) Basophils # (0-0.4) PT (9.95-12.35) SECONDS INR (0.8-3.0) APTT (25.3-37.0) SECONDS D-Dimer (215-500) ng/mL Sodium (137-145) mmol/L Potassium (3.5-5.1) mmol/L Chloride (98-107) mmol/L Carbon Dioxide (22-30) mmol/L Anion Gap (5-15) MEQ/L BUN (7-17) mg/dL Creatinine (0.52-1.04) mg/dL Estimated GFR ML/MIN Glucose (74-106) mg/dL Calcium (8.4-10.2) mg/dL Magnesium 1.4 L (1.6-2.3) mg/dL Total Bilirubin (0.2-1.3) mg/dL AST (14-36) U/L ALT (0-35) U/L Alkaline Phosphatase (38-126) U/L Troponin I < 0.012 (0.000-0.034) ng/mL Serum Total Protein (6.3-8.2) g/dL Albumin (3.5-5.0) g/dL Amylase 70 (30-110) U/L Lipase 223 (23-300) U/L 02/14/19 02/14/19 02/14/19 Range/Units 13:08 13:08 13:08 WBC 13.1 H (4.0-10.5) K/mm3 RBC 4.95 (4.1-5.4) M/mm3 Hgb 14.6 (12.0-16.0) gm/dl Hct 42.4 (35-47) % MCV 85.7 (78-100) fl MCH 29.5 (26-32) pg MCHC 34.4 (32-36) g/dl RDW 13.3 (11.5-14.0) % Plt Count 428 (150-450) K/mm3 MPV 10.2 H (6-9.5) fl Gran % 73.9 H (36.0-66.0) % Eos # (Auto) 0.12 (0-0.5) Absolute Lymphs (auto) 2.36 (1.0-4.6) Absolute Monos (auto) 0.88 (0.0-1.3) Lymphocytes % 18.0 L (24.0-44.0) % Monocytes % 6.7 (0.0-12.0) % Eosinophils % 0.9 (0.00-5.0) % Basophils % 0.5 (0.0-0.4) % Absolute Granulocytes 9.71 H (1.4-6.9) Basophils # 0.06 (0-0.4) PT 11.4 (9.95-12.35) SECONDS INR 1.01 (0.8-3.0) APTT 33.7 (25.3-37.0) SECONDS D-Dimer 527 H* (215-500) ng/mL Sodium 130 L (137-145) mmol/L Potassium 2.8 L* D (3.5-5.1) mmol/L Chloride 90 L (98-107) mmol/L Carbon Dioxide 24 (22-30) mmol/L Anion Gap 18.5 H (5-15) MEQ/L BUN 8 (7-17) mg/dL Creatinine 0.60 (0.52-1.04) mg/dL Estimated GFR > 60.0 ML/MIN Glucose 172 H (74-106) mg/dL Calcium 9.2 (8.4-10.2) mg/dL Magnesium (1.6-2.3) mg/dL Total Bilirubin 0.40 (0.2-1.3) mg/dL AST 17 (14-36) U/L ALT 16 (0-35) U/L Alkaline Phosphatase 83 (38-126) U/L Troponin I (0.000-0.034) ng/mL Serum Total Protein 7.6 (6.3-8.2) g/dL Albumin 4.5 (3.5-5.0) g/dL Amylase (30-110) U/L Lipase (23-300) U/L - Progress Progress: improved Air Movement: fair Progress Note: 02/14/19 14:17 Patient feeling better after her 4 baby aspirin. Patient's troponin within normal limits chest x-ray no acute disease process noted EKG sinus arrhythmia 100 beats per minute no acute ST or T wave changes. Unfortunately patient's d-dimer is elevated to 527 patient's potassium is 2.8. I've discussed the case with Dr. Terry ordered magnesium level on this patient I ordered a K. rider for [address] Terry would like to go ahead and get CTA of the chest to rule out pulmonary embolism. Will consider placement on observation telemetry impression 1 chest pain 2 hypokalemia. Will await results of CTA prior to placing patient on the floor. - Departure Departure Disposition: Home Clinical Impression: Hypokalemia Chest pain Qualifiers: Chest pain type: unspecified Qualified Code(s): R07.9 - Chest pain, unspecified Condition: Fair Critical Care Time: No Referrals: KLEVER RODRIGUEZ [Primary Care Provider] -
[2019-02-14] MEDS ORDERED: BABY ASPIRIN 81 MG CHEW ONE (13:19)
[2019-02-14 13:32] LABS: BASOPHIL % 0.5 % (0.0-0.4); Basophil (Absolute #) 0.06 (0-0.4); Eosinophil % 0.9 % (0.00-5.0); Eosinophil (Absolute #) 0.12 (0-0.5); Granulocyte Absolute (ANC) 9.71 (1.4-6.9); Granulocytes % 73.9 % (36.0-66.0); Hematocrit 42.4 % (35-47); Hemoglobin 14.6 gm/dl (12.0-16.0); Lymphocyte (Absolute #) 2.36 (1.0-4.6); Mean Cell Volume 85.7 fl (78-100); Mean Corpuscular Hemoglobin 29.5 pg (26-32); Mean Corpuscular Hgb Concent. 34.4 g/dl (32-36); Mean Platelet Volume 10.2 fl (6-9.5); Monocyte (Absolute #) 0.88 (0.0-1.3); Monocytes % 6.7 % (0.0-12.0); Platelet Count 428 K/mm3 (150-450); Red Blood Count 4.95 M/mm3 (4.1-5.4); Red Cell Distribution Width 13.3 % (11.5-14.0); White Blood Count 13.1 K/mm3 (4.0-10.5)
[2019-02-14 13:44] LABS: INR 1.01 (0.8-3.0); PROTIME 11.4 SECONDS (9.95-12.35)
[2019-02-14 13:47] LABS: PTT 33.7 SECONDS (25.3-37.0)
[2019-02-14 13:48] LABS: ALBUMIN 4.5 g/dL (3.5-5.0); ALKALINE PHOSPHATASE 83 U/L (38-126); ANION GAP 18.5 MEQ/L (5-15); BLOOD UREA NITROGEN 8 mg/dL (7-17); CHLORIDE 90 mmol/L (98-107); Calcium 9.2 mg/dL (8.4-10.2); Carbon Dioxide 24 mmol/L (22-30); Glucose 172 mg/dL (74-106); SGOT/AST 17 U/L (14-36); SGPT/ALT 16 U/L (0-35); SODIUM 130 mmol/L (137-145); Total Protein 7.6 g/dL (6.3-8.2)
[2019-02-14 13:48] LABS: AMYLASE 70 U/L (30-110)
[2019-02-14 13:54] LABS: Potassium 2.8 mmol/L (3.5-5.1)
[2019-02-14] MEDS ORDERED: Sodium Chloride 0.9% 1000 ML 1,000 ML ONE (14:12)
[2019-02-14] MEDS ORDERED: POTASSIUM CHLORIDE 20 mEq IN WATER 100ML 100 ML IV ONE ×2 (14:12→17:02)
[2019-02-14] MEDS: POTASSIUM CHLORIDE 20 mEq IN WATER 100ML 100 ML IV SCH ×3 (14:15→17:00)
[2019-02-14] MEDS ORDERED: Sodium Chloride 0.9% 1000 ML 1,000 ML IV SCH (16:43)
--- NOTE | 2019-02-14 20:37 | XRAY ---
Indication: Chest pain. Comparison: December 05, 2018. Portable apical lordotic chest again demonstrates normal heart and lungs with right base calcified granuloma. Bony thorax intact again with mild degenerative changes. No new/acute findings.
--- NOTE | 2019-02-14 20:41 | XRAY ---
Indication: Chest pain. Multiple contiguous axial images obtained through the chest using 100 cc Isovue 370 contrast and PE protocol. Comparison: None There is good opacification of the pulmonary arteries to include the lobar and segmental branches. No filling defect or pulmonary embolus. Heart is not enlarged. Aorta is normal in course and caliber. No pathologic mediastinal/hilar lymphadenopathy. Examination of the lung parenchyma demonstrates mild pulmonary emphysema and right lower lobe calcified granuloma. No suspicious pulmonary mass, infiltrate, or effusion. Bony thorax intact with mild degenerative changes throughout the spine. Limited upper abdomen demonstrates fatty liver and 14.6 cm splenomegaly. Impression: 1. Negative pulmonary embolus. No acute cardiopulmonary abnormalities. 2. Incidental mild pulmonary emphysema right lower lobe calcified granuloma, fatty liver, and splenomegaly. Comment: Preliminary interpretation was made by [facility]. No critical discrepancy. CTDI 23.33
[2019-02-14] MEDS: hydroDIURIL 25 MG PO SCH (23:54)
[2019-02-14] MEDS: Cozaar 50 MG PO SCH (23:54)
[2019-02-14] MEDS: xanAX 0.25 MG PO SCH (23:55)
[2019-02-15] MEDS ORDERED: SYNTHROID 100 MCG PO SCH (05:00)
[2019-02-15] MEDS ORDERED: SYNTHROID 125 MCG PO SCH (05:00)
[2019-02-15] MEDS ORDERED: SYNTHROID 50 MCG PO SCH (05:00)
[2019-02-15 05:57] LABS: BASOPHIL % 0.5 % (0.0-0.4); Basophil (Absolute #) 0.04 (0-0.4); Eosinophil (Absolute #) 0.26 (0-0.5); Granulocytes % 59.7 % (36.0-66.0); Hematocrit 39.2 % (35-47); Hemoglobin 13.4 gm/dl (12.0-16.0); Lymphocyte (Absolute #) 2.45 (1.0-4.6); Lymphocytes % 28.1 % (24.0-44.0); Mean Cell Volume 86.5 fl (78-100); Mean Corpuscular Hemoglobin 29.6 pg (26-32); Mean Corpuscular Hgb Concent. 34.2 g/dl (32-36); Mean Platelet Volume 10.1 fl (6-9.5); Monocyte (Absolute #) 0.76 (0.0-1.3); Monocytes % 8.7 % (0.0-12.0); Platelet Count 346 K/mm3 (150-450); Red Blood Count 4.53 M/mm3 (4.1-5.4); Red Cell Distribution Width 13.2 % (11.5-14.0); White Blood Count 8.7 K/mm3 (4.0-10.5)
[2019-02-15 06:12] LABS: ALBUMIN 3.7 g/dL (3.5-5.0); ALKALINE PHOSPHATASE 63 U/L (38-126); BLOOD UREA NITROGEN 4 mg/dL (7-17); CHLORIDE 96 mmol/L (98-107); Calcium 8.9 mg/dL (8.4-10.2); Carbon Dioxide 30 mmol/L (22-30); Creatinine 1 0.54 mg/dL (0.52-1.04); Glucose 118 mg/dL (74-106); Potassium 3.5 mmol/L (3.5-5.1); SGOT/AST 14 U/L (14-36); SGPT/ALT 13 U/L (0-35); SODIUM 133 mmol/L (137-145); Total Protein 6.4 g/dL (6.3-8.2)
[2019-02-15 07:09] VITALS: BP 125/73; PULSE 65; O2SAT 98
--- NOTE | 2019-02-15 09:41 | PCM.HP ---
History of Present Illness - Chief Complaint Chief Complaint: Hypokalemia History of Present Illness: is a 68 year old female pt of Dr. Rasmussen with PMHx HTN, hyperlipidemia, DM, COPD, hypothyroid, Thyroid CA with thyroidectomy, anxiety, and diverticulitis who came to ER yesterday complaining of chest pressure. She was found in ER to have low potassium and was given IV potassium and admitted for CP r/o NV. Her chest pressure she says is like when she has had previous episodes of hypokalemia. It was substernal, 8/, nonradiating, no diaphoresis or palpitations. +SOB. Yesterday she did pass large amounts of stool (this also happened when she was previously hypokalemic, around [facility] this year). She had been given a potassium supplement, which Dr. rasmussen told her no longer to take and she endorses some hx of possible allergic reaction. She did start eating bananas daily and a supplemental food bar with high potassium content, as well as cashews and drinking a gatorade a day - her potassium went to 4.3 on this regimen. However on 01/05 she had had a colonoscopy and EGD with Dr. Loredo so was instructed to avoid nuts and did colon prep. She has been constipated for the past 1-[address] Hernandez in 2016 for cardiac clearance, which she states was all normal. Her potassium on admission was 2.8. This morning it is 3.5. She has been repleted IV. Her magnesium was 1.4 at admission and was not repleted so I have ordered a 2g bolus. Once she is done with her Mg infusion, she will be released to home and is to re -start her previously home regimen of potassium rich foods. I recommend getting an outpatient BMP and Mg in 2-3 days. - Review of Systems Respiratory: Short Of Breath Cardiac: Chest Pain Abdominal/Gastrointestinal: Constipation, Other (increased stools yesterday) Psychological: Anxiety, No Depression, No Suicidal Ideations, No Homicidal Ideations Medications & Allergies Home Medications: Home Medication List ALPRAZolam [Alprazolam] 0.25 mg PO TID 09/28/18 [History Confirmed 02/14/19] Cetirizine HCl [Zyrtec] 10 mg PO DAILY 09/28/18 [History Confirmed 02/14/19] Ergocalciferol (Vitamin D2) [Vitamin D2] 50,000 unit PO Q7D 09/28/18 [History Confirmed 02/14/19] Levothyroxine Sodium 150 Mcg [Synthroid 150 Mcg] 150 mcg PO DAILY 09/28/18 [History Confirmed 02/14/19] Losartan/Hydrochlorothiazide [Losartan-Hctz 50-12.5 mg Tab] 1 each PO BID [History Confirmed 02/14/19] Omeprazole 20 mg PO DAILY 09/28/18 [History Confirmed 02/14/19] Aspirin EC 81 mg [Ecotrin 81 mg] 81 mg PO QHS 02/15/19 [History Confirmed 02/15/19] Allergies/Adverse Reactions: Allergies Allergy/AdvReac Type Severity Reaction Status Date / Time benzonatate Allergy Verified 01/05/19 09:17 [From Tessalon Perles] cephalexin [From Keflex] Allergy Verified 01/05/19 09:17 ciprofloxacin [From Cipro] Allergy Verified 01/05/19 09:17 codeine Allergy Verified 01/05/19 09:17 doxycycline Allergy Verified 01/05/19 09:17 erythromycin base Allergy Verified 01/05/19 09:17 insulin degludec Allergy Verified 01/05/19 09:17 [From Tresiba FlexTouch U-100] nitrofurantoin Allergy Verified 01/05/19 09:17 potassium chloride Allergy Verified 01/05/19 09:17 Sulfa (Sulfonamide Allergy Verified 01/05/19 09:17 Antibiotics) - Past Medical History Past Medical History: Yes Neurological History: No Pertinent History ENT History: No Pertinent History Cardiac History: High Cholesterol, Hypertension, Other Respiratory History: Bronchitis, COPD Endocrine Medical History: Diabetes Type II, Hypothyroidism, Thyroid Cancer Musculoskelatal History: Arthritis GI Medical History: Diverticulitis, Hernia, Other History: No Pertinent History Pyscho-Social History: Anxiety, Panic Disorder Reproductive Disorders: No Pertinent History Comment: PATIENT STATES SHE HAD YELLOW JAUNDICE YEARS AGO. PATIENT CANNOT TAKE STATINS ALTHOUGH SHE HAS HIGH CHOLESTEROL - Female History Are you now?: No - Past Surgical History Past Surgical History: Yes Neuro Surgical History: No Pertinent History Cardiac History: No Pertinent History Respiratory Surgery: No Pertinent History GI Surgical History: Appendectomy, Cholecystectomy Genitourinary Surgical Hx: No Pertinent History Musculskeletal Surgical Hx: Other Female Surgical History: Hysterectomy, Tubal Ligation Other Surgical History: thyroidectomy, NOSE BROKEN AND SET - Social History Smoking Status: Current every day smoker How long have you smoked: years Exposure to second hand smoke: No Alcohol: None Drug Use: none - Physical Exam Vital Signs: Vital Signs - 24 hr Temp Pulse Resp BP Pulse Ox 02/15/19 08:00 20 02/15/19 07:08 98.6 F 65 18 125/73 98 02/15/19 04:00 97.9 F 76 18 148/67 96 02/15/19 00:00 97.9 F 68 18 129/60 96 02/14/19 20:00 18 02/14/19 19:34 97.8 F 78 19 147/68 96 02/14/19 17:13 97.5 F 74 22 153/65 96 02/14/19 17:10 97.5 F 74 22 153/65 96 02/14/19 15:14 76 16 163/99 95 02/14/19 14:01 89 18 138/90 96 02/14/19 13:13 94 L 02/14/19 13:04 98.0 F 101 H 20 144/96 95 Results - Labs Lab/Micro Results: Accuchecks Date 02/15/19 Date 02/14/19 Time 06:35 Time 21:30 Accucheck Value: 118 Accucheck Value: 190 Lab Results-Last 24 Hours 02/14/19 02/14/19 02/14/19 Range/Units 13:08 13:08 13:08 WBC 13.1 H (4.0-10.5) K/mm3 RBC 4.95 (4.1-5.4) M/mm3 Hgb 14.6 (12.0-16.0) gm/dl Hct 42.4 (35-47) % MCV 85.7 (78-100) fl MCH 29.5 (26-32) pg MCHC 34.4 (32-36) g/dl RDW 13.3 (11.5-14.0) % Plt Count 428 (150-450) K/mm3 MPV 10.2 H (6-9.5) fl Gran % 73.9 H (36.0-66.0) % Eos # (Auto) 0.12 (0-0.5) Absolute Lymphs (auto) 2.36 (1.0-4.6) Absolute Monos (auto) 0.88 (0.0-1.3) Lymphocytes % 18.0 L (24.0-44.0) % Monocytes % 6.7 (0.0-12.0) % Eosinophils % 0.9 (0.00-5.0) % Basophils % 0.5 (0.0-0.4) % Absolute Granulocytes 9.71 H (1.4-6.9) Basophils # 0.06 (0-0.4) PT 11.4 (9.95-12.35) SECONDS INR 1.01 (0.8-3.0) APTT 33.7 (25.3-37.0) SECONDS D-Dimer 527 H* (215-500) ng/mL Sodium 130 L (137-145) mmol/L Potassium 2.8 L* D (3.5-5.1) mmol/L Chloride 90 L (98-107) mmol/L Carbon Dioxide 24 (22-30) mmol/L Anion Gap 18.5 H (5-15) MEQ/L BUN 8 (7-17) mg/dL Creatinine 0.60 (0.52-1.04) mg/dL Estimated GFR > 60.0 ML/MIN Glucose 172 H (74-106) mg/dL Calcium 9.2 (8.4-10.2) mg/dL Magnesium (1.6-2.3) mg/dL Total Bilirubin 0.40 (0.2-1.3) mg/dL AST 17 (14-36) U/L ALT 16 (0-35) U/L Alkaline Phosphatase 83 (38-126) U/L Troponin I (0.000-0.034) ng/mL Serum Total Protein 7.6 (6.3-8.2) g/dL Albumin 4.5 (3.5-5.0) g/dL Amylase (30-110) U/L Lipase (23-300) U/L 02/14/19 02/14/19 02/14/19 Range/Units 13:09 13:15 14:03 WBC (4.0-10.5) K/mm3 RBC (4.1-5.4) M/mm3 Hgb (12.0-16.0) gm/dl Hct (35-47) % MCV (78-100) fl MCH (26-32) pg MCHC (32-36) g/dl RDW (11.5-14.0) % Plt Count (150-450) K/mm3 MPV (6-9.5) fl Gran % (36.0-66.0) % Eos # (Auto) (0-0.5) Absolute Lymphs (auto) (1.0-4.6) Absolute Monos (auto) (0.0-1.3) Lymphocytes % (24.0-44.0) % Monocytes % (0.0-12.0) % Eosinophils % (0.00-5.0) % Basophils % (0.0-0.4) % Absolute Granulocytes (1.4-6.9) Basophils # (0-0.4) PT (9.95-12.35) SECONDS INR (0.8-3.0) APTT (25.3-37.0) SECONDS D-Dimer (215-500) ng/mL Sodium (137-145) mmol/L Potassium (3.5-5.1) mmol/L Chloride (98-107) mmol/L Carbon Dioxide (22-30) mmol/L Anion Gap (5-15) MEQ/L BUN (7-17) mg/dL Creatinine (0.52-1.04) mg/dL Estimated GFR ML/MIN Glucose (74-106) mg/dL Calcium (8.4-10.2) mg/dL Magnesium 1.4 L (1.6-2.3) mg/dL Total Bilirubin (0.2-1.3) mg/dL AST (14-36) U/L ALT (0-35) U/L Alkaline Phosphatase (38-126) U/L Troponin I < 0.012 (0.000-0.034) ng/mL Serum Total Protein (6.3-8.2) g/dL Albumin (3.5-5.0) g/dL Amylase 70 (30-110) U/L Lipase 223 (23-300) U/L 02/14/19 02/14/19 02/14/19 Range/Units 16:00 19:40 21:32 WBC (4.0-10.5) K/mm3 RBC (4.1-5.4) M/mm3 Hgb (12.0-16.0) gm/dl Hct (35-47) % MCV (78-100) fl MCH (26-32) pg MCHC (32-36) g/dl RDW (11.5-14.0) % Plt Count (150-450) K/mm3 MPV (6-9.5) fl Gran % (36.0-66.0) % Eos # (Auto) (0-0.5) Absolute Lymphs (auto) (1.0-4.6) Absolute Monos (auto) (0.0-1.3) Lymphocytes % (24.0-44.0) % Monocytes % (0.0-12.0) % Eosinophils % (0.00-5.0) % Basophils % (0.0-0.4) % Absolute Granulocytes (1.4-6.9) Basophils # (0-0.4) PT (9.95-12.35) SECONDS INR (0.8-3.0) APTT (25.3-37.0) SECONDS D-Dimer (215-500) ng/mL Sodium (137-145) mmol/L Potassium (3.5-5.1) mmol/L Chloride (98-107) mmol/L Carbon Dioxide (22-30) mmol/L Anion Gap (5-15) MEQ/L BUN (7-17) mg/dL Creatinine (0.52-1.04) mg/dL Estimated GFR ML/MIN Glucose (74-106) mg/dL Calcium (8.4-10.2) mg/dL Magnesium (1.6-2.3) mg/dL Total Bilirubin (0.2-1.3) mg/dL AST (14-36) U/L ALT (0-35) U/L Alkaline Phosphatase (38-126) U/L Troponin I < 0.012 < 0.012 < 0.012 (0.000-0.034) ng/mL Serum Total Protein (6.3-8.2) g/dL Albumin (3.5-5.0) g/dL Amylase (30-110) U/L Lipase (23-300) U/L 02/14/19 02/15/19 02/15/19 Range/Units 21:32 01:25 05:40 WBC 8.7 (4.0-10.5) K/mm3 RBC 4.53 (4.1-5.4) M/mm3 Hgb 13.4 (12.0-16.0) gm/dl Hct 39.2 (35-47) % MCV 86.5 (78-100) fl MCH 29.6 (26-32) pg MCHC 34.2 (32-36) g/dl RDW 13.2 (11.5-14.0) % Plt Count 346 (150-450) K/mm3 MPV 10.1 H (6-9.5) fl Gran % 59.7 (36.0-66.0) % Eos # (Auto) 0.26 (0-0.5) Absolute Lymphs (auto) 2.45 (1.0-4.6) Absolute Monos (auto) 0.76 (0.0-1.3) Lymphocytes % 28.1 (24.0-44.0) % Monocytes % 8.7 (0.0-12.0) % Eosinophils % 3.0 (0.00-5.0) % Basophils % 0.5 (0.0-0.4) % Absolute Granulocytes 5.20 (1.4-6.9) Basophils # 0.04 (0-0.4) PT (9.95-12.35) SECONDS INR (0.8-3.0) APTT (25.3-37.0) SECONDS D-Dimer (215-500) ng/mL Sodium (137-145) mmol/L Potassium 3.6 D (3.5-5.1) mmol/L Chloride (98-107) mmol/L Carbon Dioxide (22-30) mmol/L Anion Gap (5-15) MEQ/L BUN (7-17) mg/dL Creatinine (0.52-1.04) mg/dL Estimated GFR ML/MIN Glucose (74-106) mg/dL Calcium (8.4-10.2) mg/dL Magnesium (1.6-2.3) mg/dL Total Bilirubin (0.2-1.3) mg/dL AST (14-36) U/L ALT (0-35) U/L Alkaline Phosphatase (38-126) U/L Troponin I < 0.012 (0.000-0.034) ng/mL Serum Total Protein (6.3-8.2) g/dL Albumin (3.5-5.0) g/dL Amylase (30-110) U/L Lipase (23-300) U/L 02/15/19 Range/Units 05:40 WBC (4.0-10.5) K/mm3 RBC (4.1-5.4) M/mm3 Hgb (12.0-16.0) gm/dl Hct (35-47) % MCV (78-100) fl MCH (26-32) pg MCHC (32-36) g/dl RDW (11.5-14.0) % Plt Count (150-450) K/mm3 MPV (6-9.5) fl Gran % (36.0-66.0) % Eos # (Auto) (0-0.5) Absolute Lymphs (auto) (1.0-4.6) Absolute Monos (auto) (0.0-1.3) Lymphocytes % (24.0-44.0) % Monocytes % (0.0-12.0) % Eosinophils % (0.00-5.0) % Basophils % (0.0-0.4) % Absolute Granulocytes (1.4-6.9) Basophils # (0-0.4) PT (9.95-12.35) SECONDS INR (0.8-3.0) APTT (25.3-37.0) SECONDS D-Dimer (215-500) ng/mL Sodium 133 L (137-145) mmol/L Potassium 3.5 (3.5-5.1) mmol/L Chloride 96 L (98-107) mmol/L Carbon Dioxide 30 (22-30) mmol/L Anion Gap 10.0 (5-15) MEQ/L BUN 4 L (7-17) mg/dL Creatinine 0.54 (0.52-1.04) mg/dL Estimated GFR > 60.0 ML/MIN Glucose 118 H (74-106) mg/dL Calcium 8.9 (8.4-10.2) mg/dL Magnesium (1.6-2.3) mg/dL Total Bilirubin 0.50 (0.2-1.3) mg/dL AST 14 (14-36) U/L ALT 13 (0-35) U/L Alkaline Phosphatase 63 (38-126) U/L Troponin I (0.000-0.034) ng/mL Serum Total Protein 6.4 (6.3-8.2) g/dL Albumin 3.7 (3.5-5.0) g/dL Amylase (30-110) U/L Lipase (23-300) U/L Accuchecks Date 02/15/19 Date 02/14/19 Time 06:35 Time 21:30 Accucheck Value: 118 Accucheck Value: 190 - Radiology Impressions Radiology Exams & Impressions: Radiology Procedures Category Date Time Status CHEST 1 VIEW (PORTABLE) Stat Exams 02/14/19 13:08 Completed CHEST WITH CONTRAST [CT] Stat Exams 02/14/19 14:16 Completed
[2019-02-15] MEDS ORDERED: Magnesium Sulfate 1 GM/2 ML VIAL IV ONE (09:45)
[2019-02-15] MEDS: hydroDIURIL 25 MG PO SCH (09:54)
--- NOTE | 2019-02-15 09:54 | PCM.SSS ---
History of Present Illness - Chief Complaint Chief Complaint: Hypokalemia History of Present Illness: is a 68 year old female pt of Dr. Rasmussen with PMHx HTN, hyperlipidemia, DM, COPD, hypothyroid, Thyroid CA with thyroidectomy, anxiety, and diverticulitis who came to ER yesterday complaining of chest pressure. She was found in ER to have low potassium and was given IV potassium and admitted for CP r/o ID. Troponins have been neg x 5 here. EKG without acute changes, sinus arrhythmia. Her chest pressure she says is like when she has had previous episodes of hypokalemia. It was substernal, 8/, nonradiating, no diaphoresis or palpitations. +SOB. Yesterday she did pass large amounts of stool (this also happened when she was previously hypokalemic, around [facility] this year). She had been given a potassium supplement, which Dr. rasmussen told her no longer to take and she endorses some hx of possible allergic reaction. She did start eating bananas daily and a supplemental food bar with high potassium content, as well as cashews and drinking a gatorade a day - her potassium went to 4.3 on this regimen. However on 01/05 she had had a colonoscopy and EGD with Dr. Loredo so was instructed to avoid nuts and did colon prep. She has been constipated for the past 1-[address] Rodriguez in 2016 for cardiac clearance, which she states was all normal. Her potassium on admission was 2.8. This morning it is 3.5. She has been repleted IV. Her magnesium was 1.4 at admission and was not repleted so I have ordered a 2g bolus. Once she is done with her Mg infusion, she will be released to home and is to re -start her previously home regimen of potassium rich foods. I recommend getting an outpatient BMP and Mg in 2-3 days. - Review of Systems Respiratory: Short Of Breath Cardiac: Chest Pain Abdominal/Gastrointestinal: Constipation, Other (increased stools yesterday) Psychological: Anxiety, No Depression, No Suicidal Ideations, No Homicidal Ideations All Other Systems: Reviewed and Negative Medications & Allergies Home Medications: Home Medication List ALPRAZolam [Alprazolam] 0.25 mg PO TID 09/28/18 [History Confirmed 02/14/19] Cetirizine HCl [Zyrtec] 10 mg PO DAILY 09/28/18 [History Confirmed 02/14/19] Ergocalciferol (Vitamin D2) [Vitamin D2] 50,000 unit PO Q7D 09/28/18 [History Confirmed 02/14/19] Levothyroxine Sodium 150 Mcg [Synthroid 150 Mcg] 150 mcg PO DAILY 09/28/18 [History Confirmed 02/14/19] Losartan/Hydrochlorothiazide [Losartan-Hctz 50-12.5 mg Tab] 1 each PO BID [History Confirmed 02/14/19] Omeprazole 20 mg PO DAILY 09/28/18 [History Confirmed 02/14/19] Aspirin EC 81 mg [Ecotrin 81 mg] 81 mg PO QHS 02/15/19 [History Confirmed 02/15/19] Allergies/Adverse Reactions: Allergies Allergy/AdvReac Type Severity Reaction Status Date / Time benzonatate Allergy Verified 01/05/19 09:17 [From Tessalon Perles] cephalexin [From Keflex] Allergy Verified 01/05/19 09:17 ciprofloxacin [From Cipro] Allergy Verified 01/05/19 09:17 codeine Allergy Verified 01/05/19 09:17 doxycycline Allergy Verified 01/05/19 09:17 erythromycin base Allergy Verified 01/05/19 09:17 insulin degludec Allergy Verified 01/05/19 09:17 [From Tresiba FlexTouch U-100] nitrofurantoin Allergy Verified 01/05/19 09:17 potassium chloride Allergy Verified 01/05/19 09:17 Sulfa (Sulfonamide Allergy Verified 01/05/19 09:17 Antibiotics) - Past Medical History Past Medical History: Yes Neurological History: No Pertinent History ENT History: No Pertinent History Cardiac History: High Cholesterol, Hypertension, Other Respiratory History: Bronchitis, COPD Endocrine Medical History: Diabetes Type II, Hypothyroidism, Thyroid Cancer Musculoskelatal History: Arthritis GI Medical History: Diverticulitis, Hernia, Other History: No Pertinent History Pyscho-Social History: Anxiety, Panic Disorder Reproductive Disorders: No Pertinent History Comment: PATIENT STATES SHE HAD YELLOW JAUNDICE YEARS AGO. PATIENT CANNOT TAKE STATINS ALTHOUGH SHE HAS HIGH CHOLESTEROL - Female History Are you now?: No - Past Surgical History Past Surgical History: Yes Neuro Surgical History: No Pertinent History Cardiac History: No Pertinent History Respiratory Surgery: No Pertinent History GI Surgical History: Appendectomy, Cholecystectomy Genitourinary Surgical Hx: No Pertinent History Musculskeletal Surgical Hx: Other Female Surgical History: Hysterectomy, Tubal Ligation Other Surgical History: thyroidectomy, NOSE BROKEN AND SET - Social History Smoking Status: Current every day smoker How long have you smoked: years Exposure to second hand smoke: No Alcohol: None Drug Use: none - Physical Exam Vital Signs: Vital Signs - 24 hr Temp Pulse Resp BP Pulse Ox 02/15/19 08:00 20 02/15/19 07:08 98.6 F 65 18 125/73 98 02/15/19 04:00 97.9 F 76 18 148/67 96 02/15/19 00:00 97.9 F 68 18 129/60 96 02/14/19 20:00 18 02/14/19 19:34 97.8 F 78 19 147/68 96 02/14/19 17:13 97.5 F 74 22 153/65 96 02/14/19 17:10 97.5 F 74 22 153/65 96 02/14/19 15:14 76 16 163/99 95 02/14/19 14:01 89 18 138/90 96 02/14/19 13:13 94 L 02/14/19 13:04 98.0 F 101 H 20 144/96 95 General Appearance: no apparent distress, alert Neurologic Exam: oriented x 3, cooperative Eye Exam: eyes nml inspection Ears, Nose, Throat Exam: moist mucous membranes Neck Exam: normal inspection Respiratory Exam: normal breath sounds, lungs clear, No crackles/rales, No rhonchi, No wheezing Cardiovascular Exam: regular rate/rhythm, normal heart sounds, No murmur Gastrointestinal/Abdomen Exam: soft, normal bowel sounds, hernia (upper mid abd approx 3cm area palpable mildly ttp), No distention, No mass, No guarding Back Exam: normal inspection, No rash Extremity Exam: normal inspection, No pedal edema, No swelling Skin Exam: normal color, warm, dry, No rash Results - Labs Lab/Micro Results: Accuchecks Date 02/15/19 Date 02/14/19 Time 06:35 Time 21:30 Accucheck Value: 118 Accucheck Value: 190 Lab Results-Last 24 Hours 02/14/19 02/14/19 02/14/19 Range/Units 13:08 13:08 13:08 WBC 13.1 H (4.0-10.5) K/mm3 RBC 4.95 (4.1-5.4) M/mm3 Hgb 14.6 (12.0-16.0) gm/dl Hct 42.4 (35-47) % MCV 85.7 (78-100) fl MCH 29.5 (26-32) pg MCHC 34.4 (32-36) g/dl RDW 13.3 (11.5-14.0) % Plt Count 428 (150-450) K/mm3 MPV 10.2 H (6-9.5) fl Gran % 73.9 H (36.0-66.0) % Eos # (Auto) 0.12 (0-0.5) Absolute Lymphs (auto) 2.36 (1.0-4.6) Absolute Monos (auto) 0.88 (0.0-1.3) Lymphocytes % 18.0 L (24.0-44.0) % Monocytes % 6.7 (0.0-12.0) % Eosinophils % 0.9 (0.00-5.0) % Basophils % 0.5 (0.0-0.4) % Absolute Granulocytes 9.71 H (1.4-6.9) Basophils # 0.06 (0-0.4) PT 11.4 (9.95-12.35) SECONDS INR 1.01 (0.8-3.0) APTT 33.7 (25.3-37.0) SECONDS D-Dimer 527 H* (215-500) ng/mL Sodium 130 L (137-145) mmol/L Potassium 2.8 L* D (3.5-5.1) mmol/L Chloride 90 L (98-107) mmol/L Carbon Dioxide 24 (22-30) mmol/L Anion Gap 18.5 H (5-15) MEQ/L BUN 8 (7-17) mg/dL Creatinine 0.60 (0.52-1.04) mg/dL Estimated GFR > 60.0 ML/MIN Glucose 172 H (74-106) mg/dL Calcium 9.2 (8.4-10.2) mg/dL Magnesium (1.6-2.3) mg/dL Total Bilirubin 0.40 (0.2-1.3) mg/dL AST 17 (14-36) U/L ALT 16 (0-35) U/L Alkaline Phosphatase 83 (38-126) U/L Troponin I (0.000-0.034) ng/mL Serum Total Protein 7.6 (6.3-8.2) g/dL Albumin 4.5 (3.5-5.0) g/dL Amylase (30-110) U/L Lipase (23-300) U/L 02/14/19 02/14/19 02/14/19 Range/Units 13:09 13:15 14:03 WBC (4.0-10.5) K/mm3 RBC (4.1-5.4) M/mm3 Hgb (12.0-16.0) gm/dl Hct (35-47) % MCV (78-100) fl MCH (26-32) pg MCHC (32-36) g/dl RDW (11.5-14.0) % Plt Count (150-450) K/mm3 MPV (6-9.5) fl Gran % (36.0-66.0) % Eos # (Auto) (0-0.5) Absolute Lymphs (auto) (1.0-4.6) Absolute Monos (auto) (0.0-1.3) Lymphocytes % (24.0-44.0) % Monocytes % (0.0-12.0) % Eosinophils % (0.00-5.0) % Basophils % (0.0-0.4) % Absolute Granulocytes (1.4-6.9) Basophils # (0-0.4) PT (9.95-12.35) SECONDS INR (0.8-3.0) APTT (25.3-37.0) SECONDS D-Dimer (215-500) ng/mL Sodium (137-145) mmol/L Potassium (3.5-5.1) mmol/L Chloride (98-107) mmol/L Carbon Dioxide (22-30) mmol/L Anion Gap (5-15) MEQ/L BUN (7-17) mg/dL Creatinine (0.52-1.04) mg/dL Estimated GFR ML/MIN Glucose (74-106) mg/dL Calcium (8.4-10.2) mg/dL Magnesium 1.4 L (1.6-2.3) mg/dL Total Bilirubin (0.2-1.3) mg/dL AST (14-36) U/L ALT (0-35) U/L Alkaline Phosphatase (38-126) U/L Troponin I < 0.012 (0.000-0.034) ng/mL Serum Total Protein (6.3-8.2) g/dL Albumin (3.5-5.0) g/dL Amylase 70 (30-110) U/L Lipase 223 (23-300) U/L 02/14/19 02/14/19 02/14/19 Range/Units 16:00 19:40 21:32 WBC (4.0-10.5) K/mm3 RBC (4.1-5.4) M/mm3 Hgb (12.0-16.0) gm/dl Hct (35-47) % MCV (78-100) fl MCH (26-32) pg MCHC (32-36) g/dl RDW (11.5-14.0) % Plt Count (150-450) K/mm3 MPV (6-9.5) fl Gran % (36.0-66.0) % Eos # (Auto) (0-0.5) Absolute Lymphs (auto) (1.0-4.6) Absolute Monos (auto) (0.0-1.3) Lymphocytes % (24.0-44.0) % Monocytes % (0.0-12.0) % Eosinophils % (0.00-5.0) % Basophils % (0.0-0.4) % Absolute Granulocytes (1.4-6.9) Basophils # (0-0.4) PT (9.95-12.35) SECONDS INR (0.8-3.0) APTT (25.3-37.0) SECONDS D-Dimer (215-500) ng/mL Sodium (137-145) mmol/L Potassium (3.5-5.1) mmol/L Chloride (98-107) mmol/L Carbon Dioxide (22-30) mmol/L Anion Gap (5-15) MEQ/L BUN (7-17) mg/dL Creatinine (0.52-1.04) mg/dL Estimated GFR ML/MIN Glucose (74-106) mg/dL Calcium (8.4-10.2) mg/dL Magnesium (1.6-2.3) mg/dL Total Bilirubin (0.2-1.3) mg/dL AST (14-36) U/L ALT (0-35) U/L Alkaline Phosphatase (38-126) U/L Troponin I < 0.012 < 0.012 < 0.012 (0.000-0.034) ng/mL Serum Total Protein (6.3-8.2) g/dL Albumin (3.5-5.0) g/dL Amylase (30-110) U/L Lipase (23-300) U/L 02/14/19 02/15/19 02/15/19 Range/Units 21:32 01:25 05:40 WBC 8.7 (4.0-10.5) K/mm3 RBC 4.53 (4.1-5.4) M/mm3 Hgb 13.4 (12.0-16.0) gm/dl Hct 39.2 (35-47) % MCV 86.5 (78-100) fl MCH 29.6 (26-32) pg MCHC 34.2 (32-36) g/dl RDW 13.2 (11.5-14.0) % Plt Count 346 (150-450) K/mm3 MPV 10.1 H (6-9.5) fl Gran % 59.7 (36.0-66.0) % Eos # (Auto) 0.26 (0-0.5) Absolute Lymphs (auto) 2.45 (1.0-4.6) Absolute Monos (auto) 0.76 (0.0-1.3) Lymphocytes % 28.1 (24.0-44.0) % Monocytes % 8.7 (0.0-12.0) % Eosinophils % 3.0 (0.00-5.0) % Basophils % 0.5 (0.0-0.4) % Absolute Granulocytes 5.20 (1.4-6.9) Basophils # 0.04 (0-0.4) PT (9.95-12.35) SECONDS INR (0.8-3.0) APTT (25.3-37.0) SECONDS D-Dimer (215-500) ng/mL Sodium (137-145) mmol/L Potassium 3.6 D (3.5-5.1) mmol/L Chloride (98-107) mmol/L Carbon Dioxide (22-30) mmol/L Anion Gap (5-15) MEQ/L BUN (7-17) mg/dL Creatinine (0.52-1.04) mg/dL Estimated GFR ML/MIN Glucose (74-106) mg/dL Calcium (8.4-10.2) mg/dL Magnesium (1.6-2.3) mg/dL Total Bilirubin (0.2-1.3) mg/dL AST (14-36) U/L ALT (0-35) U/L Alkaline Phosphatase (38-126) U/L Troponin I < 0.012 (0.000-0.034) ng/mL Serum Total Protein (6.3-8.2) g/dL Albumin (3.5-5.0) g/dL Amylase (30-110) U/L Lipase (23-300) U/L 02/15/19 Range/Units 05:40 WBC (4.0-10.5) K/mm3 RBC (4.1-5.4) M/mm3 Hgb (12.0-16.0) gm/dl Hct (35-47) % MCV (78-100) fl MCH (26-32) pg MCHC (32-36) g/dl RDW (11.5-14.0) % Plt Count (150-450) K/mm3 MPV (6-9.5) fl Gran % (36.0-66.0) % Eos # (Auto) (0-0.5) Absolute Lymphs (auto) (1.0-4.6) Absolute Monos (auto) (0.0-1.3) Lymphocytes % (24.0-44.0) % Monocytes % (0.0-12.0) % Eosinophils % (0.00-5.0) % Basophils % (0.0-0.4) % Absolute Granulocytes (1.4-6.9) Basophils # (0-0.4) PT (9.95-12.35) SECONDS INR (0.8-3.0) APTT (25.3-37.0) SECONDS D-Dimer (215-500) ng/mL Sodium 133 L (137-145) mmol/L Potassium 3.5 (3.5-5.1) mmol/L Chloride 96 L (98-107) mmol/L Carbon Dioxide 30 (22-30) mmol/L Anion Gap 10.0 (5-15) MEQ/L BUN 4 L (7-17) mg/dL Creatinine 0.54 (0.52-1.04) mg/dL Estimated GFR > 60.0 ML/MIN Glucose 118 H (74-106) mg/dL Calcium 8.9 (8.4-10.2) mg/dL Magnesium (1.6-2.3) mg/dL Total Bilirubin 0.50 (0.2-1.3) mg/dL AST 14 (14-36) U/L ALT 13 (0-35) U/L Alkaline Phosphatase 63 (38-126) U/L Troponin I (0.000-0.034) ng/mL Serum Total Protein 6.4 (6.3-8.2) g/dL Albumin 3.7 (3.5-5.0) g/dL Amylase (30-110) U/L Lipase (23-300) U/L Accuchecks Date 02/15/19 Date 02/14/19 Time 06:35 Time 21:30 Accucheck Value: 118 Accucheck Value: 190 - Radiology Impressions Radiology Exams & Impressions: Radiology Procedures Category Date Time Status CHEST 1 VIEW (PORTABLE) Stat Exams 02/14/19 13:08 Completed CHEST WITH CONTRAST [CT] Stat Exams 02/14/19 14:16 Completed Assessment/Plan (1) Chest pain Current Visit: Yes Status: Resolved Qualifiers: Chest pain type: unspecified Qualified Code(s): R07.9 - Chest pain, unspecified Assessment & Plan: ruled out for ID. F/u with Dr. Rasmussen regarding any need for further workup. Code(s): R07.9 - CHEST PAIN, UNSPECIFIED (2) Hypokalemia Current Visit: Yes Status: Resolved Assessment & Plan: Will need to strictly stay on her high potassium diet. Code(s): E87.6 - HYPOKALEMIA (3) Hypomagnesemia Current Visit: Yes Status: Acute Assessment & Plan: repleting now. Will check outpt next week. Code(s): E83.42 - HYPOMAGNESEMIA (4) HTN (hypertension) Current Visit: No Status: Chronic Qualifiers: Hypertension type: essential hypertension Qualified Code(s): I10 - Essential (primary) hypertension Code(s): I10 - ESSENTIAL (PRIMARY) HYPERTENSION (5) Type 2 diabetes mellitus Current Visit: No Status: Chronic Qualifiers: Diabetes mellitus half-way insulin use: without terminal system operator use Diabetes mellitus complication status: without complication Qualified Code(s): E11.9 - Type 2 diabetes mellitus without complications Hospital Summary - Hospital Course Hospital Course: is a 68 year old female pt of Dr. Rasmussen with PMHx HTN, hyperlipidemia, DM, COPD, hypothyroid, Thyroid CA with thyroidectomy, anxiety, and diverticulitis who came to ER yesterday complaining of chest pressure. She was found to have low potassium and magnesium and was admitted for IV repletion (does not bryanna po potassium). Her levels are corrected, she will be d/c to home and f/u with Dr. Rasmussen. OP lab to be done in 2-3 d. CP ruled out for ID. - Vitals & Intake/Output Vital Signs: Vital Signs Temperature 98.6 F 02/15/19 07:08 Pulse Rate 65 02/15/19 07:08 Respiratory Rate 20 02/15/19 08:00 Blood Pressure 125/73 02/15/19 07:08 O2 Sat by Pulse Oximetry 98 02/15/19 07:08 Intake & Output: Intake & Output 02/12/19 02/13/19 02/14/19 02/15/19 11:59 11:59 11:59 11:59 Intake Total 4820 Balance 4820 Weight 72.575 kg - Lab Result Diagrams: 02/15/19 05:40 02/15/19 05:40 Lab Results-Last 24 Hrs: Accuchecks Date 02/15/19 Date 02/14/19 Time 06:35 Time 21:30 Accucheck Value: 118 Accucheck Value: 190 Lab Results-Last 24 Hours 02/14/19 02/14/19 02/14/19 Range/Units 13:08 13:08 13:08 WBC 13.1 H (4.0-10.5) K/mm3 RBC 4.95 (4.1-5.4) M/mm3 Hgb 14.6 (12.0-16.0) gm/dl Hct 42.4 (35-47) % MCV 85.7 (78-100) fl MCH 29.5 (26-32) pg MCHC 34.4 (32-36) g/dl RDW 13.3 (11.5-14.0) % Plt Count 428 (150-450) K/mm3 MPV 10.2 H (6-9.5) fl Gran % 73.9 H (36.0-66.0) % Eos # (Auto) 0.12 (0-0.5) Absolute Lymphs (auto) 2.36 (1.0-4.6) Absolute Monos (auto) 0.88 (0.0-1.3) Lymphocytes % 18.0 L (24.0-44.0) % Monocytes % 6.7 (0.0-12.0) % Eosinophils % 0.9 (0.00-5.0) % Basophils % 0.5 (0.0-0.4) % Absolute Granulocytes 9.71 H (1.4-6.9) Basophils # 0.06 (0-0.4) PT 11.4 (9.95-12.35) SECONDS INR 1.01 (0.8-3.0) APTT 33.7 (25.3-37.0) SECONDS D-Dimer 527 H* (215-500) ng/mL Sodium 130 L (137-145) mmol/L Potassium 2.8 L* D (3.5-5.1) mmol/L Chloride 90 L (98-107) mmol/L Carbon Dioxide 24 (22-30) mmol/L Anion Gap 18.5 H (5-15) MEQ/L BUN 8 (7-17) mg/dL Creatinine 0.60 (0.52-1.04) mg/dL Estimated GFR > 60.0 ML/MIN Glucose 172 H (74-106) mg/dL Calcium 9.2 (8.4-10.2) mg/dL Magnesium (1.6-2.3) mg/dL Total Bilirubin 0.40 (0.2-1.3) mg/dL AST 17 (14-36) U/L ALT 16 (0-35) U/L Alkaline Phosphatase 83 (38-126) U/L Troponin I (0.000-0.034) ng/mL Serum Total Protein 7.6 (6.3-8.2) g/dL Albumin 4.5 (3.5-5.0) g/dL Amylase (30-110) U/L Lipase (23-300) U/L 02/14/19 02/14/19 02/14/19 Range/Units 13:09 13:15 14:03 WBC (4.0-10.5) K/mm3 RBC (4.1-5.4) M/mm3 Hgb (12.0-16.0) gm/dl Hct (35-47) % MCV (78-100) fl MCH (26-32) pg MCHC (32-36) g/dl RDW (11.5-14.0) % Plt Count (150-450) K/mm3 MPV (6-9.5) fl Gran % (36.0-66.0) % Eos # (Auto) (0-0.5) Absolute Lymphs (auto) (1.0-4.6) Absolute Monos (auto) (0.0-1.3) Lymphocytes % (24.0-44.0) % Monocytes % (0.0-12.0) % Eosinophils % (0.00-5.0) % Basophils % (0.0-0.4) % Absolute Granulocytes (1.4-6.9) Basophils # (0-0.4) PT (9.95-12.35) SECONDS INR (0.8-3.0) APTT (25.3-37.0) SECONDS D-Dimer (215-500) ng/mL Sodium (137-145) mmol/L Potassium (3.5-5.1) mmol/L Chloride (98-107) mmol/L Carbon Dioxide (22-30) mmol/L Anion Gap (5-15) MEQ/L BUN (7-17) mg/dL Creatinine (0.52-1.04) mg/dL Estimated GFR ML/MIN Glucose (74-106) mg/dL Calcium (8.4-10.2) mg/dL Magnesium 1.4 L (1.6-2.3) mg/dL Total Bilirubin (0.2-1.3) mg/dL AST (14-36) U/L ALT (0-35) U/L Alkaline Phosphatase (38-126) U/L Troponin I < 0.012 (0.000-0.034) ng/mL Serum Total Protein (6.3-8.2) g/dL Albumin (3.5-5.0) g/dL Amylase 70 (30-110) U/L Lipase 223 (23-300) U/L 02/14/19 02/14/19 02/14/19 Range/Units 16:00 19:40 21:32 WBC (4.0-10.5) K/mm3 RBC (4.1-5.4) M/mm3 Hgb (12.0-16.0) gm/dl Hct (35-47) % MCV (78-100) fl MCH (26-32) pg MCHC (32-36) g/dl RDW (11.5-14.0) % Plt Count (150-450) K/mm3 MPV (6-9.5) fl Gran % (36.0-66.0) % Eos # (Auto) (0-0.5) Absolute Lymphs (auto) (1.0-4.6) Absolute Monos (auto) (0.0-1.3) Lymphocytes % (24.0-44.0) % Monocytes % (0.0-12.0) % Eosinophils % (0.00-5.0) % Basophils % (0.0-0.4) % Absolute Granulocytes (1.4-6.9) Basophils # (0-0.4) PT (9.95-12.35) SECONDS INR (0.8-3.0) APTT (25.3-37.0) SECONDS D-Dimer (215-500) ng/mL Sodium (137-145) mmol/L Potassium (3.5-5.1) mmol/L Chloride (98-107) mmol/L Carbon Dioxide (22-30) mmol/L Anion Gap (5-15) MEQ/L BUN (7-17) mg/dL Creatinine (0.52-1.04) mg/dL Estimated GFR ML/MIN Glucose (74-106) mg/dL Calcium (8.4-10.2) mg/dL Magnesium (1.6-2.3) mg/dL Total Bilirubin (0.2-1.3) mg/dL AST (14-36) U/L ALT (0-35) U/L Alkaline Phosphatase (38-126) U/L Troponin I < 0.012 < 0.012 < 0.012 (0.000-0.034) ng/mL Serum Total Protein (6.3-8.2) g/dL Albumin (3.5-5.0) g/dL Amylase (30-110) U/L Lipase (23-300) U/L 02/14/19 02/15/19 02/15/19 Range/Units 21:32 01:25 05:40 WBC 8.7 (4.0-10.5) K/mm3 RBC 4.53 (4.1-5.4) M/mm3 Hgb 13.4 (12.0-16.0) gm/dl Hct 39.2 (35-47) % MCV 86.5 (78-100) fl MCH 29.6 (26-32) pg MCHC 34.2 (32-36) g/dl RDW 13.2 (11.5-14.0) % Plt Count 346 (150-450) K/mm3 MPV 10.1 H (6-9.5) fl Gran % 59.7 (36.0-66.0) % Eos # (Auto) 0.26 (0-0.5) Absolute Lymphs (auto) 2.45 (1.0-4.6) Absolute Monos (auto) 0.76 (0.0-1.3) Lymphocytes % 28.1 (24.0-44.0) % Monocytes % 8.7 (0.0-12.0) % Eosinophils % 3.0 (0.00-5.0) % Basophils % 0.5 (0.0-0.4) % Absolute Granulocytes 5.20 (1.4-6.9) Basophils # 0.04 (0-0.4) PT (9.95-12.35) SECONDS INR (0.8-3.0) APTT (25.3-37.0) SECONDS D-Dimer (215-500) ng/mL Sodium (137-145) mmol/L Potassium 3.6 D (3.5-5.1) mmol/L Chloride (98-107) mmol/L Carbon Dioxide (22-30) mmol/L Anion Gap (5-15) MEQ/L BUN (7-17) mg/dL Creatinine (0.52-1.04) mg/dL Estimated GFR ML/MIN Glucose (74-106) mg/dL Calcium (8.4-10.2) mg/dL Magnesium (1.6-2.3) mg/dL Total Bilirubin (0.2-1.3) mg/dL AST (14-36) U/L ALT (0-35) U/L Alkaline Phosphatase (38-126) U/L Troponin I < 0.012 (0.000-0.034) ng/mL Serum Total Protein (6.3-8.2) g/dL Albumin (3.5-5.0) g/dL Amylase (30-110) U/L Lipase (23-300) U/L 02/15/19 Range/Units 05:40 WBC (4.0-10.5) K/mm3 RBC (4.1-5.4) M/mm3 Hgb (12.0-16.0) gm/dl Hct (35-47) % MCV (78-100) fl MCH (26-32) pg MCHC (32-36) g/dl RDW (11.5-14.0) % Plt Count (150-450) K/mm3 MPV (6-9.5) fl Gran % (36.0-66.0) % Eos # (Auto) (0-0.5) Absolute Lymphs (auto) (1.0-4.6) Absolute Monos (auto) (0.0-1.3) Lymphocytes % (24.0-44.0) % Monocytes % (0.0-12.0) % Eosinophils % (0.00-5.0) % Basophils % (0.0-0.4) % Absolute Granulocytes (1.4-6.9) Basophils # (0-0.4) PT (9.95-12.35) SECONDS INR (0.8-3.0) APTT (25.3-37.0) SECONDS D-Dimer (215-500) ng/mL Sodium 133 L (137-145) mmol/L Potassium 3.5 (3.5-5.1) mmol/L Chloride 96 L (98-107) mmol/L Carbon Dioxide 30 (22-30) mmol/L Anion Gap 10.0 (5-15) MEQ/L BUN 4 L (7-17) mg/dL Creatinine 0.54 (0.52-1.04) mg/dL Estimated GFR > 60.0 ML/MIN Glucose 118 H (74-106) mg/dL Calcium 8.9 (8.4-10.2) mg/dL Magnesium (1.6-2.3) mg/dL Total Bilirubin 0.50 (0.2-1.3) mg/dL AST 14 (14-36) U/L ALT 13 (0-35) U/L Alkaline Phosphatase 63 (38-126) U/L Troponin I (0.000-0.034) ng/mL Serum Total Protein 6.4 (6.3-8.2) g/dL Albumin 3.7 (3.5-5.0) g/dL Amylase (30-110) U/L Lipase (23-300) U/L Micro Results-Entire Visit: Accuchecks Date 02/15/19 Date 02/14/19 Time 06:35 Time 21:30 Accucheck Value: 118 Accucheck Value: 190 - Radiology Exams Ordered Rad Exams-Entire Visit: Radiology Procedures Category Date Time Status CHEST 1 VIEW (PORTABLE) Stat Exams 02/14/19 13:08 Completed CHEST WITH CONTRAST [CT] Stat Exams 02/14/19 14:16 Completed - Procedures and Test Procedures and Tests throughout Hospitalization: Therapy Orders & Screens 02/14/19 16:43 Respiratory Therapy Consult ROUTINE Comment: Reason For Exam: - Discharge Disposition: Home, Self-Care Condition: Stable Prescriptions: Continue Ergocalciferol (Vitamin D2) [Vitamin D2] 50,000 unit PO Q7D Levothyroxine Sodium 150 Mcg [Synthroid 150 Mcg] 150 mcg PO DAILY Omeprazole 20 mg PO DAILY Losartan/Hydrochlorothiazide [Losartan-Hctz 50-12.5 mg Tab] 1 each PO BID Cetirizine HCl [Zyrtec] 10 mg PO DAILY ALPRAZolam [Alprazolam] 0.25 mg PO TID Aspirin EC 81 mg [Ecotrin 81 mg] 81 mg PO QHS Follow up with: KLEVER RODRIGUEZ [Primary Care Provider] - 1 Week
[2019-02-15] MEDS: xanAX 0.25 MG PO SCH (09:55)
[2019-02-15] MEDS: Cozaar 50 MG PO SCH (09:55)
[2019-02-15] MEDS ORDERED: NON-FORMULARY ITEM (Cetirizine Hcl [Zyrtec] 10 MG) PO SCH (10:00)
[2019-02-15] MEDS ORDERED: CLARITIN 10 MG PO SCH (10:00)
[2019-02-15] MEDS ORDERED: Protonix 40MG Tablet PO SCH (10:00)
[2019-02-15] MEDS ORDERED: NON-FORMULARY ITEM (Omeprazole [Omeprazole] 20 MG) PO SCH (10:00)
[2019-02-15] MEDS ORDERED: Magnesium Sulfate 1 GM/2 ML VIAL*** 2 GM in Sodium Chloride 0.9% 100 ML IVPB 100 ML IV SCH (10:00)
[2019-02-15] MEDS ORDERED: ECOTRIN 81 MG PO SCH (22:00)
[2019-02-16] MEDS ORDERED: SYNTHROID 150 MCG PO SCH (06:00)
== END 2019-02-15 11:15 | disposition home or self-care (01) ==
LOC: ED 12:57 → MED SURG 16:37
PROVIDERS: ADMIT Family Medicine; ATTEND Family Medicine
DX: R07.9 Chest pain, unspecified (principal); E87.6 Hypokalemia; I10 Essential (primary) hypertension; E83.42 Hypomagnesemia; E78.5 Hyperlipidemia, unspecified; J44.9 Chronic obstructive pulmonary disease, unspecified; E11.9 Type 2 diabetes mellitus without complications; Z85.850 Personal history of malignant neoplasm of thyroid; K57.92 Diverticulitis of intestine, part unspecified, without perforation or abscess without bleeding; Z79.899 Other long term (current) drug therapy; F17.200 Nicotine dependence, unspecified, uncomplicated
CPT/HCPCS: 36000; 36415; 71045; 71260; 80053; 82150; 82962; 83690; 83735; 84132; 84484; 85025; 85379; 85610; 85730; 93005; 93041; 93268; 96365; 96366; 99285; G0378; J3475; J3480; A9270-GY

== ENCOUNTER 2019-09-04 23:56 | Emergency (ER) | payer MEDICARE ==
--- NOTE | 2019-09-05 01:01 | ERPHSYRPT ---
- History of Present Illness Time Seen by Provider: 09/05/19 00:20 Source: patient Exam Limitations: no limitations Patient Subjective Stated Complaint: pt states that she was sitting on a wooden chair in the kitchen, pt states that she had slick pants on and slid right off the chair, pt states that left hip is hurting, pt states that she did it at 1700 but pain and swelling began at 1900 Triage Nursing Assessment: pt ambulated into the er, pt is axo x3, vitals wnl, no rotation to left leg, no deformity, swelling present to left hip, no bruising present, pt states 8/10 pain to left hip Physician History: patient is a 69-year-old female who slipped from a chair and fell on her rear end. She complains of pain in the left buttocks. She denies any other pain. Occurred: just prior to arrival Reason for Fall: slipped, fell from height (of chair) Injuries/Pain Location: pelvis Loss of Consciousness: no loss of consciousness Quality: stabbing Severity of Pain-Max: moderate Severity of Pain-Current: moderate Modifying Factors: Improves With: cold therapy Allergies/Adverse Reactions: benzonatate [From Tessalon Perles] Allergy (Verified 09/05/19 00:30) cephalexin [From Keflex] Allergy (Verified 09/05/19 00:30) ciprofloxacin [From Cipro] Allergy (Verified 09/05/19 00:30) codeine Allergy (Verified 09/05/19 00:30) cyclobenzaprine Allergy (Verified 09/05/19 00:30) doxycycline Allergy (Verified 09/05/19 00:30) erythromycin base Allergy (Verified 09/05/19 00:30) insulin degludec [From Tresiba FlexTouch U-100] Allergy (Verified 09/05/19 00:30 ) nitrofurantoin Allergy (Verified 09/05/19 00:30) potassium chloride Allergy (Verified 09/05/19 00:30) sucralfate Allergy (Verified 09/05/19 00:30) Sulfa (Sulfonamide Antibiotics) Allergy (Verified 09/05/19 00:30) Home Medications: ALPRAZolam [Alprazolam] 0.25 mg PO TID 09/28/18 [History] Cetirizine HCl [Zyrtec] 10 mg PO DAILY 09/28/18 [History] Ergocalciferol (Vitamin D2) [Vitamin D2] 50,000 unit PO Q7D 09/28/18 [History] Levothyroxine Sodium 150 Mcg [Synthroid 150 Mcg] 125 mcg PO DAILY 09/28/18 [History] Omeprazole 20 mg PO DAILY 09/28/18 [History] Aspirin EC 81 mg [Ecotrin 81 mg] 81 mg PO QHS 02/15/19 [History] Amlodipine Besylate 5 mg 09/05/19 [History] Glimepiride 1 mg PO DAILY 09/05/19 [History] Losartan Potassium 100 mg PO DAILY 09/05/19 [History] Hx Tetanus, Diphtheria Vaccination/Date Given: Yes (unknown) Hx Influenza Vaccination/Date Given: Yes Hx Pneumococcal Vaccination/Date Given: Yes - Review of Systems Constitutional: No Fever, No Chills Eyes: No Symptoms Ears, Nose, & Throat: No Symptoms Respiratory: No Cough, No Dyspnea Cardiac: No Chest Pain, No Edema, No Syncope Abdominal/Gastrointestinal: No Abdominal Pain, No Nausea, No Vomiting, No Diarrhea Genitourinary Symptoms: No Dysuria Musculoskeletal: Arthralgias, Fall, Myalgias, No Back Pain, No Neck Pain Skin: No Rash Neurological: No Dizziness, No Focal Weakness, No Sensory Changes Psychological: No Symptoms Endocrine: No Symptoms All Other Systems: Reviewed and Negative - Past Medical History Pertinent Past Medical History: Yes Neurological History: No Pertinent History ENT History: No Pertinent History Cardiac History: High Cholesterol, Hypertension, Other Respiratory History: Bronchitis, COPD Endocrine Medical History: Diabetes Type II, Hypothyroidism, Thyroid Cancer Musculoskeletal History: Arthritis GI Medical History: Diverticulitis, Hernia, Other History: No Pertinent History, Other Psycho-Social History: Anxiety, Depression, Panic Disorder Female Reproductive Disorders: No Pertinent History Other Medical History: PATIENT STATES SHE HAD YELLOW JAUNDICE YEARS AGO. PATIENT CANNOT TAKE STATINS ALTHOUGH SHE HAS HIGH CHOLESTEROL, dropped bladder - Past Surgical History Past Surgical History: Yes Neuro Surgical History: No Pertinent History Cardiac: No Pertinent History Respiratory: No Pertinent History Gastrointestinal: Appendectomy, Cholecystectomy, Rectal Surgery Genitourinary: No Pertinent History Musculoskeletal: Other Female Surgical History: Hysterectomy, Tubal Ligation Other Surgical History: thyroidectomy, NOSE BROKEN AND SET, bladder and rectal lift - Social History Smoking Status: Current every day smoker How long have you smoked: years Exposure to second hand smoke: No Drug Use: none Patient Lives Alone: Yes - Female History Hx Now: No - Nursing Vital Signs Nursing Vital Signs: Initial Vital Signs Temperature 97.8 F 09/05/19 00:10 Pulse Rate 91 H 09/05/19 00:10 Respiratory Rate 16 09/05/19 00:10 Blood Pressure 129/71 09/05/19 00:10 O2 Sat by Pulse Oximetry 97 09/05/19 00:10 Pain Scale Pain Intensity 8 - [place] Coma Score Best Eye Response ([place]): (4) open spontaneously Best Verbal Response ([place]): (5) oriented Best Motor Response ([place]): (6) obeys commands [place] Total: 15 - Physical Exam General Appearance: mild distress Head Injury: no evidence of injury Eye Exam: PERRL/EOMI, eyes nml inspection ENT Exam: airway nml, evidence of ENT injury Neck Exam: supple, trachea midline Respiratory/Chest Exam: chest tenderness, normal breath sounds Cardiovascular Exam: normal heart sounds Gastrointestinal Exam: soft, normal bowel sounds Back Exam: normal inspection Extremity Exam: hip tenderness, pain with movement Neurologic Exam: alert, oriented x 3 Skin Exam: normal color SpO2 Interpretation: normal SpO2: 97 O2 Delivery: Room Air - Course Nursing assessment & vital signs reviewed: Yes Ordered Tests: Active Orders 24 hr Category Date Time Status HIP UNI (2V) INCL PEL IF DONE Stat Exams 09/05/19 Ordered - Progress Progress: unchanged - Departure Departure Disposition: Home Clinical Impression: Fall Condition: Stable Critical Care Time: No Referrals: JAISON QUINTEROS MD [Primary Care Provider] - Instructions: Contusion (DC)
[2019-09-05 01:33] VITALS: BP 115/59; PULSE 82; O2SAT 92
--- NOTE | 2019-09-05 08:47 | XRAY ---
Indication: Pain following fall. Comparison: None AP pelvis and 2 views of the left hip demonstrates mild degenerative changes of both hips, lower lumbar degenerative spondylosis, and radiopacities in colonic diverticuli. No other bony, articular, or soft tissue abnormalities.
== END 2019-09-05 01:33 | disposition home or self-care (01) ==
LOC: ED 23:56
DX: S70.02XA Contusion of left hip, initial encounter (principal); W07.XXXA Fall from chair, initial encounter; Z79.899 Other long term (current) drug therapy; E78.00 Pure hypercholesterolemia, unspecified; I10 Essential (primary) hypertension; E11.9 Type 2 diabetes mellitus without complications; E03.9 Hypothyroidism, unspecified; C73 Malignant neoplasm of thyroid gland
CPT/HCPCS: 73502; 99283

== ENCOUNTER 2019-10-04 13:41 | Emergency (ER) | payer MEDICARE ==
--- NOTE | 2019-10-04 14:34 | ERPHSYRPT ---
- History of Present Illness Time Seen by Provider: 10/04/19 13:58 Source: patient, family Exam Limitations: no limitations Patient Subjective Stated Complaint: pt reports after waking this morning she checked her blood pressure and noted it to be high, around 138/90, she checked it many more times over the next couple hours and noted it to be 143/100 at the highest measurement. pt reports she is also under a lot of stress due to upcoming surgery related to her bladder. Triage Nursing Assessment: pt is aox3, appears anxious, pupils perrl, afebrile, resps easy and non labored, cap refill < 3 seconds, radial pulses strong and equal, heart tones strong and irregular, pt skin pink warm dry. Timing/Duration: today Severity: mild Modifying Factors: Improves With: other (stress worsening BP) Associated Symptoms: denies symptoms Allergies/Adverse Reactions: benzonatate [From Tessalon Perles] Allergy (Severe, Verified 10/04/19 14:42) cephalexin [From Keflex] Allergy (Severe, Verified 10/04/19 14:42) ciprofloxacin [From Cipro] Allergy (Severe, Verified 10/04/19 14:42) codeine Allergy (Severe, Verified 10/04/19 14:42) cyclobenzaprine Allergy (Severe, Verified 10/04/19 14:42) doxycycline Allergy (Severe, Verified 10/04/19 14:46) erythromycin base Allergy (Severe, Verified 10/04/19 14:46) insulin degludec [From Tresiba FlexTouch U-100] Allergy (Severe, Verified 14:46) nitrofurantoin Allergy (Severe, Verified 10/04/19 14:46) oseltamivir Allergy (Severe, Verified 10/04/19 14:46) potassium chloride Allergy (Severe, Verified 10/04/19 14:46) prednisone Allergy (Severe, Verified 10/04/19 14:46) sucralfate Allergy (Severe, Verified 10/04/19 14:46) Sulfa (Sulfonamide Antibiotics) Allergy (Severe, Verified 10/04/19 14:46) Home Medications: ALPRAZolam [Alprazolam] 0.25 mg PO TID 09/28/18 [History] Cetirizine HCl [Zyrtec] 10 mg PO DAILY 09/28/18 [History] Ergocalciferol (Vitamin D2) [Vitamin D2] 50,000 unit PO Q7D 09/28/18 [History] Levothyroxine Sodium 150 Mcg [Synthroid 150 Mcg] 125 mcg PO DAILY 09/28/18 [History] Omeprazole 20 mg PO DAILY 09/28/18 [History] Aspirin EC 81 mg [Ecotrin 81 mg] 81 mg PO QHS 02/15/19 [History] Amlodipine Besylate 5 mg PO DAILY 09/05/19 [History] Glimepiride 1 mg PO DAILY 09/05/19 [History] Losartan Potassium 100 mg PO DAILY 09/05/19 [History] Magnesium Oxide [Magnesium] 250 mg PO DAILY 10/04/19 [History] Potassium Gluconate 99 mg PO DAILY 10/04/19 [History] Hx Tetanus, Diphtheria Vaccination/Date Given: (unk) Hx Influenza Vaccination/Date Given: Yes Hx Pneumococcal Vaccination/Date Given: Yes Immunizations Up to Date: Yes - Review of Systems Constitutional: No Symptoms Eyes: No Symptoms Ears, Nose, & Throat: No Symptoms Respiratory: No Symptoms Cardiac: No Symptoms Abdominal/Gastrointestinal: No Symptoms Genitourinary Symptoms: No Symptoms Musculoskeletal: No Symptoms Skin: No Symptoms Neurological: No Symptoms Psychological: Anxiety Endocrine: No Symptoms Hematologic/Lymphatic: No Symptoms Immunological/Allergic: No Symptoms All Other Systems: Reviewed and Negative - Past Medical History Pertinent Past Medical History: Yes Neurological History: Other ENT History: No Pertinent History Cardiac History: High Cholesterol, Hypertension, Other Respiratory History: Bronchitis, COPD Endocrine Medical History: Diabetes Type II, Hypothyroidism, Thyroid Cancer Musculoskeletal History: Arthritis GI Medical History: Diverticulitis, Diverticulosis, GERD, Hernia, Other History: No Pertinent History, Other Psycho-Social History: Anxiety, Depression, Panic Disorder Female Reproductive Disorders: No Pertinent History Other Medical History: PATIENT STATES SHE HAD YELLOW JAUNDICE YEARS AGO. PATIENT CANNOT TAKE STATINS ALTHOUGH SHE HAS HIGH CHOLESTEROL, dropped bladder. tremors. mitral valve prolapse, heart murmur. varicose veins - Past Surgical History Past Surgical History: Yes Neuro Surgical History: No Pertinent History Cardiac: No Pertinent History Respiratory: No Pertinent History Gastrointestinal: Appendectomy, Cholecystectomy, Rectal Surgery Genitourinary: No Pertinent History Musculoskeletal: Other Female Surgical History: Hysterectomy, Tubal Ligation Other Surgical History: thyroidectomy, NOSE BROKEN AND SET, bladder and rectal lift - Social History Smoking Status: Current every day smoker How long have you smoked: 50+ Exposure to second hand smoke: No Drug Use: none Patient Lives Alone: No - Female History Hx Now: No - Nursing Vital Signs Nursing Vital Signs: Initial Vital Signs Temperature 98.1 F 10/04/19 13:54 Pulse Rate 89 10/04/19 13:54 Respiratory Rate 20 10/04/19 13:54 Blood Pressure 149/83 10/04/19 13:54 O2 Sat by Pulse Oximetry 98 10/04/19 13:54 Pain Scale Pain Intensity 0 - Physical Exam General Appearance: no apparent distress, anxiety Eye Exam: PERRL/EOMI, eyes nml inspection Ears, Nose, Throat Exam: normal ENT inspection, moist mucous membranes Neck Exam: normal inspection, non-tender Respiratory Exam: normal breath sounds Cardiovascular Exam: regular rate/rhythm, normal heart sounds Gastrointestinal/Abdomen Exam: soft, normal bowel sounds Pelvic Exam: not done Rectal Exam: deferred Back Exam: other (N/E) Extremity Exam: normal inspection, normal range of motion Neurologic Exam: alert, oriented x 3, cooperative, sensation nml, No motor weakness Skin Exam: normal color, warm SpO2 Interpretation: normal SpO2: 98 O2 Delivery: Room Air - Course Nursing assessment & vital signs reviewed: Yes - Progress Progress: improved Progress Note: BP at home never very high. 's BP machine may be "off". She is very anxious, stressed about an upcoming surgery. After talking to her, BP about 120/ 70, she wants to go home, no tests. 10/04/19 17:17 Counseled pt/family regarding: need for follow-up (Check BP) - Departure Departure Disposition: Home Clinical Impression: HTN (hypertension) Qualifiers: Hypertension type: essential hypertension Qualified Code(s): I10 - Essential ( primary) hypertension Condition: Stable Critical Care Time: No Referrals: JAISON QUINTEROS MD [Primary Care Provider] - Instructions: Malignant Hypertension (DC) Additional Instructions: Keep monitoring your blood pressure. See your Dr. if readings are running high.
[2019-10-04 15:15] VITALS: BP 128/77; PULSE 84
[2019-10-04 17:19] VITALS: O2SAT 98
== END 2019-10-04 15:14 | disposition home or self-care (01) ==
LOC: ED 13:41
DX: I10 Essential (primary) hypertension (principal)
CPT/HCPCS: 99283

== ENCOUNTER 2019-10-18 00:41 | Emergency (ER) | payer MEDICARE ==
[2019-10-18] MEDS ORDERED: Sodium Chloride 0.9% 1000 ML 1,000 ML IV STA (01:14)
--- NOTE | 2019-10-18 01:14 | ERPHSYRPT ---
- History of Present Illness Time Seen by Provider: 10/18/19 01:00 Source: patient Exam Limitations: no limitations Physician History: 69 years old female with history of hypertension, hyperlipidemia, diabetes mellitus, mitral valve prolapse presented in the ER with chief complaint of low blood pressure which she has been checking at home since yesterday afternoon. She brought her BP monitor and blood pressure was in low 100s along with low heart rate in 40s and irregular heart rate per monitor. Patient reports she feels lightheaded and dizzy at times. Denies any chest pain palpitations or shortness of breath. Patient reports lightheadedness gets worse with activity and better with resting. Denies any recent change in the antihypertensives. On presentation in the ER blood pressure is in low 100s. Patient's heart rate is in 90s on presentation and regular. Denies any nausea vomiting or diarrhea. Has good oral intake as usual. Denies recent fever or chills. Is very anxious Timing/Duration: yesterday Allergies/Adverse Reactions: benzonatate [From Tessalon Perles] Allergy (Severe, Verified 10/18/19 01:10) cephalexin [From Keflex] Allergy (Severe, Verified 10/18/19 01:10) ciprofloxacin [From Cipro] Allergy (Severe, Verified 10/18/19 01:10) codeine Allergy (Severe, Verified 10/18/19 01:10) cyclobenzaprine Allergy (Severe, Verified 10/18/19 01:10) doxycycline Allergy (Severe, Verified 10/18/19 01:10) erythromycin base Allergy (Severe, Verified 10/18/19 01:10) insulin degludec [From Tresiba FlexTouch U-100] Allergy (Severe, Verified 01:10) nitrofurantoin Allergy (Severe, Verified 10/18/19 01:10) oseltamivir Allergy (Severe, Verified 10/18/19 01:10) potassium chloride Allergy (Severe, Verified 10/18/19 01:10) prednisone Allergy (Severe, Verified 10/18/19 01:10) sucralfate Allergy (Severe, Verified 10/18/19 01:10) Sulfa (Sulfonamide Antibiotics) Allergy (Severe, Verified 10/18/19 01:10) Home Medications: ALPRAZolam [Alprazolam] 0.25 mg PO TID 09/28/18 [History] Cetirizine HCl [Zyrtec] 10 mg PO DAILY 09/28/18 [History] Ergocalciferol (Vitamin D2) [Vitamin D2] 50,000 unit PO Q7D 09/28/18 [History] Levothyroxine Sodium 150 Mcg [Synthroid 150 Mcg] 125 mcg PO DAILY 09/28/18 [History] Aspirin EC 81 mg [Ecotrin 81 mg] 81 mg PO QHS 02/15/19 [History] Amlodipine Besylate 5 mg PO DAILY 09/05/19 [History] Glimepiride 1 mg PO DAILY 09/05/19 [History] Losartan Potassium 100 mg PO DAILY 09/05/19 [History] Magnesium Oxide [Magnesium] 250 mg PO DAILY 10/04/19 [History] Potassium Gluconate 99 mg PO DAILY 10/04/19 [History] Hx Tetanus, Diphtheria Vaccination/Date Given: (unk) Hx Influenza Vaccination/Date Given: Yes Hx Pneumococcal Vaccination/Date Given: Yes - Review of Systems Constitutional: Fatigue Eyes: No Symptoms Ears, Nose, & Throat: No Symptoms Respiratory: No Symptoms Cardiac: No Symptoms Abdominal/Gastrointestinal: No Symptoms Genitourinary Symptoms: No Symptoms Musculoskeletal: No Symptoms Skin: No Symptoms Neurological: No Symptoms Psychological: No Symptoms Endocrine: No Symptoms Hematologic/Lymphatic: No Symptoms Immunological/Allergic: No Symptoms - Past Medical History Pertinent Past Medical History: Yes Neurological History: Other ENT History: No Pertinent History Cardiac History: High Cholesterol, Hypertension, Other Respiratory History: Bronchitis, COPD Endocrine Medical History: Diabetes Type II, Hypothyroidism, Thyroid Cancer Musculoskeletal History: Arthritis GI Medical History: Diverticulitis, Diverticulosis, GERD, Hernia, Other History: No Pertinent History, Other Psycho-Social History: Anxiety, Depression, Panic Disorder Female Reproductive Disorders: No Pertinent History Other Medical History: PATIENT STATES SHE HAD YELLOW JAUNDICE YEARS AGO. PATIENT CANNOT TAKE STATINS ALTHOUGH SHE HAS HIGH CHOLESTEROL, dropped bladder. tremors. mitral valve prolapse, heart murmur. varicose veins - Past Surgical History Past Surgical History: Yes Neuro Surgical History: No Pertinent History Cardiac: No Pertinent History Respiratory: No Pertinent History Gastrointestinal: Appendectomy, Cholecystectomy, Rectal Surgery Genitourinary: No Pertinent History Musculoskeletal: Other Female Surgical History: Hysterectomy, Tubal Ligation Other Surgical History: thyroidectomy, NOSE BROKEN AND SET, bladder and rectal lift - Social History Smoking Status: Current every day smoker How long have you smoked: 50+ Exposure to second hand smoke: No Drug Use: none Patient Lives Alone: No - Nursing Vital Signs Nursing Vital Signs: Initial Vital Signs Temperature 97.7 F 10/18/19 01:11 Pulse Rate 94 H 10/18/19 01:11 Respiratory Rate 16 10/18/19 01:11 Blood Pressure 103/60 10/18/19 01:11 O2 Sat by Pulse Oximetry 99 10/18/19 01:11 Pain Scale Pain Intensity 0 - Physical Exam General Appearance: no apparent distress Eye Exam: PERRL/EOMI Ears, Nose, Throat Exam: normal ENT inspection Neck Exam: normal inspection, non-tender Respiratory Exam: normal breath sounds, lungs clear Cardiovascular Exam: regular rate/rhythm, normal heart sounds, normal peripheral pulses Gastrointestinal/Abdomen Exam: soft, normal bowel sounds, No tenderness Back Exam: normal inspection, normal range of motion, No CVA tenderness Extremity Exam: normal inspection, normal range of motion, pelvis stable Neurologic Exam: alert, oriented x 3, cooperative, application internship II-XII nml as tested, normal mood/affect, nml cerebellar function, nml station & gait, sensation nml Skin Exam: normal color SpO2 Interpretation: normal O2 Delivery: Room Air - Course Nursing assessment & vital signs reviewed: Yes EKG Interpreted by Me: RATE ([id number]), Left [place] Deviation, NORMAL INTERVALS, Q-wave (septal), Non-specific ST Changes Ordered Tests: Active Orders 24 hr Category Date Time Status EKG-ER Only STAT Care 10/18/19 01:14 Active IV Insertion STAT Care 10/18/19 01:14 Active Orthostatic Vital Signs STAT Care 10/18/19 01:15 Active CHEST 2 VIEWS (PA AND LAT) Stat Exams 10/18/19 01:15 Taken CBC W DIFF Stat Lab 10/18/19 01:51 Completed CMP Stat Lab 10/18/19 01:51 Completed MAG [MAGNESIUM] Stat Lab 10/18/19 01:51 Completed TROPONIN Q3H Lab 10/18/19 01:51 Completed Medication Summary Discontinued Medications Generic Name Dose Route Start Last Admin Trade Name Freq PRN Reason Stop Dose Admin Sodium Chloride 1,000 mls @ 999 mls/hr 10/18/19 01:14 10/18/19 01:56 Sodium Chloride 0.9% 1000 Ml IV 10/18/19 02:14 999 mls/hr .Q1H1M STA Administration Sodium Chloride Confirm 10/18/19 01:53 Sodium Chloride 0.9% 1000 Ml Administered 10/18/19 01:54 Dose 1,000 mls @ ud .ROUTE .K-MED ONE Lab/Rad Data: Laboratory Result Diagrams 10/18/19 01:51 10/18/19 01:51 Laboratory Results 10/18/19 10/18/19 10/18/19 Range/Units 01:51 01:51 01:51 WBC (4.0-10.5) K/mm3 RBC (4.1-5.4) M/mm3 Hgb (12.0-16.0) gm/dl Hct (35-47) % MCV (78-100) fl MCH (26-32) pg MCHC (32-36) g/dl RDW (11.5-14.0) % Plt Count (150-450) K/mm3 MPV (7.5-11.0) fl Gran % (36.0-66.0) % Eos # (Auto) (0-0.5) Absolute Lymphs (auto) (1.0-4.6) Absolute Monos (auto) (0.0-1.3) Lymphocytes % (24.0-44.0) % Monocytes % (0.0-12.0) % Eosinophils % (0.00-5.0) % Basophils % (0.0-0.4) % Absolute Granulocytes (1.4-6.9) Basophils # (0-0.4) Sodium 138 (137-145) mmol/L Potassium 4.3 (3.5-5.1) mmol/L Chloride 105 (98-107) mmol/L Carbon Dioxide 30 (22-30) mmol/L Anion Gap 7.9 (5-15) MEQ/L BUN 17 (7-17) mg/dL Creatinine 0.77 (0.52-1.04) mg/dL Estimated GFR > 60.0 ML/MIN Glucose 184 H (74-106) mg/dL Calcium 9.0 (8.4-10.2) mg/dL Magnesium 2.0 (1.6-2.3) mg/dL Total Bilirubin 0.40 (0.2-1.3) mg/dL AST 18 (14-36) U/L ALT 13 (0-35) U/L Alkaline Phosphatase 92 (38-126) U/L Troponin I < 0.012 (0.000-0.034) ng/mL Serum Total Protein 7.1 (6.3-8.2) g/dL Albumin 4.1 (3.5-5.0) g/dL 10/18/19 Range/Units 01:51 WBC 13.7 H (4.0-10.5) K/mm3 RBC 4.83 (4.1-5.4) M/mm3 Hgb 13.6 (12.0-16.0) gm/dl Hct 42.4 (35-47) % MCV 87.8 (78-100) fl MCH 28.2 (26-32) pg MCHC 32.1 (32-36) g/dl RDW 13.9 (11.5-14.0) % Plt Count 320 (150-450) K/mm3 MPV 11.0 (7.5-11.0) fl Gran % 68.1 H (36.0-66.0) % Eos # (Auto) 0.29 (0-0.5) Absolute Lymphs (auto) 2.90 (1.0-4.6) Absolute Monos (auto) 1.12 (0.0-1.3) Lymphocytes % 21.1 L (24.0-44.0) % Monocytes % 8.2 (0.0-12.0) % Eosinophils % 2.1 (0.00-5.0) % Basophils % 0.5 (0.0-0.4) % Absolute Granulocytes 9.34 H (1.4-6.9) Basophils # 0.07 (0-0.4) Sodium (137-145) mmol/L Potassium (3.5-5.1) mmol/L Chloride (98-107) mmol/L Carbon Dioxide (22-30) mmol/L Anion Gap (5-15) MEQ/L BUN (7-17) mg/dL Creatinine (0.52-1.04) mg/dL Estimated GFR ML/MIN Glucose (74-106) mg/dL Calcium (8.4-10.2) mg/dL Magnesium (1.6-2.3) mg/dL Total Bilirubin (0.2-1.3) mg/dL AST (14-36) U/L ALT (0-35) U/L Alkaline Phosphatase (38-126) U/L Troponin I (0.000-0.034) ng/mL Serum Total Protein (6.3-8.2) g/dL Albumin (3.5-5.0) g/dL - Progress Progress: improved Progress Note: 10/18/19 she is given a fluid bolus. Orthostatics negative. Not show any acute ischemic changes. Blood pressure remained stable. Heart rate is normal. I believe patient's monitor is not working right and needs calibration. Unremarkable work-up in the ER. On reevaluation patient feeling better and much more calm down and wants to go home. No more dizzy and is stable for discharge. Counseled pt/family regarding: lab results, diagnosis, need for follow-up, rad results - Departure Departure Disposition: Home Clinical Impression: Light-headed feeling Condition: Stable Critical Care Time: No Referrals: JAISON QUINTEROS MD [Primary Care Provider] - 10/19/19 (1 day for re evaluation) Instructions: Dizziness, Nonvertigo, (DC) Additional Instructions: Drink plenty of fluids. Monitor your blood pressure regularly, keep a log. Follow-up with primary care for reevaluation. Return to ER for any worsening.
[2019-10-18 01:53] LABS: Absolute Neutrophil Ct (ANC) 9.34 (1.4-6.9); BASOPHIL % 0.5 % (0.0-0.4); Basophil (Absolute #) 0.07 (0-0.4); Eosinophil % 2.1 % (0.00-5.0); Eosinophil (Absolute #) 0.29 (0-0.5); Hematocrit 42.4 % (35-47); Hemoglobin 13.6 gm/dl (12.0-16.0); Lymphocytes % 21.1 % (24.0-44.0); Mean Cell Volume 87.8 fl (78-100); Mean Corpuscular Hemoglobin 28.2 pg (26-32); Mean Corpuscular Hgb Concent. 32.1 g/dl (32-36); Monocyte (Absolute #) 1.12 (0.0-1.3); Monocytes % 8.2 % (0.0-12.0); Neutrophil % 68.1 % (36.0-66.0); Platelet Count 320 K/mm3 (150-450); Red Blood Count 4.83 M/mm3 (4.1-5.4); Red Cell Distribution Width 13.9 % (11.5-14.0); White Blood Count 13.7 K/mm3 (4.0-10.5)
[2019-10-18] MEDS ORDERED: Sodium Chloride 0.9% 1000 ML 1,000 ML ONE (01:53)
[2019-10-18 02:05] LABS: ALBUMIN 4.1 g/dL (3.5-5.0); ALKALINE PHOSPHATASE 92 U/L (38-126); ANION GAP 7.9 MEQ/L (5-15); BLOOD UREA NITROGEN 17 mg/dL (7-17); CHLORIDE 105 mmol/L (98-107); Carbon Dioxide 30 mmol/L (22-30); Creatinine 1 0.77 mg/dL (0.52-1.04); Glucose 184 mg/dL (74-106); Potassium 4.3 mmol/L (3.5-5.1); SGOT/AST 18 U/L (14-36); SGPT/ALT 13 U/L (0-35); SODIUM 138 mmol/L (137-145); Total Protein 7.1 g/dL (6.3-8.2)
[2019-10-18 03:37] VITALS: BP 107/69; PULSE 75; O2SAT 99
--- NOTE | 2019-10-18 08:08 | XRAY ---
Indication: Hypotension. Lightheaded. Comparison: February 14, 2019. PA/lateral chest again demonstrates normal heart and lungs with incidental right lower lobe calcified granuloma. Bony thorax intact again with mild degenerative changes and remote L1 compression fracture. No new/acute findings. Impression: Continued nonacute chest with chronic features.
== END 2019-10-18 03:37 | disposition home or self-care (01) ==
LOC: ED 00:41
DX: R42 Dizziness and giddiness (principal); I10 Essential (primary) hypertension; E78.00 Pure hypercholesterolemia, unspecified; E11.9 Type 2 diabetes mellitus without complications; I34.1 Nonrheumatic mitral (valve) prolapse; Z79.899 Other long term (current) drug therapy; R53.83 Other fatigue; E03.9 Hypothyroidism, unspecified; J44.9 Chronic obstructive pulmonary disease, unspecified
CPT/HCPCS: 36000; 36415; 71046; 80053; 83735; 84484; 85025; 93005; 96360; 99284